=== PATIENT | male | born 2000 | race Caucasian/White ===

== ENCOUNTER 2019-12-02 12:41 | Emergency (ER) | payer MEDICAID, SELFPAY ==
[2019-12-02 12:45] VITALS: BP 144/75; PULSE 98; RESP 16; TEMP 37; O2SAT 100
--- NOTE | 2019-12-02 13:03 | W.ED.GENAD ---
Discharge Plan Disposition Patient Disposition: HOME Condition: Improving Discharge Details Chief Complaint: DentalOral Clinical Impression: Odontalgia, Broken tooth Primary Care Provider: None,None ED Provider: Ventura Elias Home Meds and New Rx's Prescriptions: New penicillin V potassium 500 mg tablet 500 mg PO QID 10 Days Qty: 40 RF: 0 Discharge Instructions Instructions: Acute Dental Trauma (ED), Toothache (ED) Additional Instructions: May use dental wax to provide additional coverage and protection from air and temperature. Soft diet. Take antibiotics as prescribed. Please see enclosed list of available dentists. Medical Decision Making 19-year-old male with broken upper first molar on the left side presents with persistent pain over weeks time and report of cancellation of planned extraction. He does have tenderness to percussion and palpation but no significant abscess formation. He likely is developing recurrent apical infection. Will place on antibiotics, he was given dental wax, he was offered a dental block which he declined. Patient has had pain that is refractory to [id number] medications. I will prescribe him a small number of oral analgesia for which he was consented. He understands homecare and return precautions. HPI General Mode of arrival: ambulatory. Date/Time Provider Initiated Documentation: 12/02/19 12:42. Limitations to Documentation: no limitations. Information obtained by: patient. History of Present Illness 19 year old M presents to the emergency department with the chief complaint of Left upper first molar pain, described as moderate, Quality is described as dull, and is localized to the mouth and left. Patient reports no radiation. Patient started experiencing this week(s) and it has been constant. No relieving factors improve symptom(s), No exacerbating factors reported . Patient did receive the following treatments prior to arrival, NSAID Related Data Home Medications Medication Instructions Recorded Confirmed penicillin V potassium 500 mg PO QID 10 Days #40 tab 12/02/19 Previous Rx's Medication Instructions Recorded penicillin V potassium 500 mg PO QID 10 Days #40 tab 12/02/19 Allergies Allergy/AdvReac Type Severity Reaction Status Date / Time No Known Allergies Allergy Unverified 12/02/19 12:50 General Stated Complaint: DentalOral WANDA: 4 Review of Systems Narrative: No change to voice, no difficulty swallowing, continues to smoke and has a chronic cough. 5 systems reviewed and otherwise negative COUNTS INCLUDE 234 BEDS AT THE [facility] Medical History ADHD (attention deficit hyperactivity disorder) Mood disorder Family History Mother Rheumatoid arthritis Diabetes Essential hypertension Degenerative joint disease Stroke COPD (chronic obstructive pulmonary disease) Asthma Father Substance abuse Mental disorder Social History Smoking/Tobacco Use Status: Current every day Tobacco Type: cigarettes Alcohol Intake: never Drug use: Occasionally Substance use type: marijuana Do you feel safe at home: Yes Do you feel safe in your relationship?: Yes Exam Narrative Exam Narrative: GEN: awake, alert, oriented 3. Pleasant, well groomed, interactive. HEAD: Normocephalic, atraumatic ENT: Mucous membranes moist, oropharynx with broken posterior cusps of the first molar on the left maxilla, tender to touch, no significant fluctuance and no buccal or lingual aspect swelling EYES: PERRL, EOMI NECK: Full ROM, no SUZANNE, no menigismus EXT: Full ROM, no edema, no rash Neuro: Grossly normal neurologic exam, conversant, interactive. Psych: Speech fluent, thoughts congruent, affect normal Course Vital Signs Vital signs: Vital Signs Temperature 37 C 12/02/19 12:45 Pulse 98 H 12/02/19 12:45 Respiratory Rate 16 12/02/19 12:45 Blood Pressure 144/75 H 12/02/19 12:45 Pulse Oximetry 100 12/02/19 12:45 Temperature 37 C 12/02/19 12:45 Temperature Source Skin 12/02/19 12:45 Pulse 98 H 12/02/19 12:45 Respiratory Rate 16 12/02/19 12:45 Respiratory Effort 12/02/19 12:51 Blood Pressure 144/75 H 12/02/19 12:45 Blood Pressure Position Sitting 12/02/19 12:45 Pulse Oximetry 100 12/02/19 12:45 Oxygen Delivery Method Room Air 12/02/19 12:45 Oxygen Flow Rate 0 12/02/19 12:45 Pain Level 10 12/02/19 12:45
== END 2019-12-02 13:29 | disposition home or self-care (01) ==
LOC: ER 13:24
PROVIDERS: Emergency Provider Emergency Medicine; PCP Nurse Practitioner
DX: R68.84 Jaw pain (principal); S02.5XXA Fracture of tooth (traumatic), initial encounter for closed fracture; X58.XXXA Exposure to other specified factors, initial encounter
CPT/HCPCS: 99283

== ENCOUNTER 2020-02-01 09:29 | Emergency (ER) | payer MEDICAID, SELFPAY ==
--- NOTE | 2020-02-01 09:30 | ED.GENADUL_ITS ---
Discharge Plan Disposition Patient Disposition: HOME Condition: Stable Discharge Details Chief Complaint: GenMedical Clinical Impression: Abrasion of forearm, right, Patient requested test Primary Care Provider: None,None ED Provider: Lisa Guzman Home Meds and New Rx's Prescriptions: Continued tramadol 50 mg tablet 50 mg PO TID PRN (Reason: pain) Qty: 7 RF: 0 Discharge Instructions Instructions: Abrasion (ED) Additional Instructions: Drink plenty of fluids and get plenty of rest. Keep wound clean and dry. Cover wound with bandage if risk of contamination. Otherwise you can keep the wound open to air if resting at home to allow edges to dry and heal. Follow-up with your primary care doctor in 1 week. Return to the emergency department with any worsening or new concerning symptoms. Call the hospital to schedule an appointment for COVID testing at the hospital tent. Stand Alone Forms: NEGATIVE COVID-19 SCREENING Discharge Data Discharge Physician: Lisa Guzman Medical Decision Making 19-year-old male with a history of ADHD and anxiety presents for evaluation with 2 caretakers who currently have respiratory symptoms and are being tested for COVID. Patient denies any symptoms. Patient states he would rather not be tested today if possible. BP hypertensive, otherwise vitals within normal limits. Lungs clear. Will refer patient to the tent for outpatient testing. He also complained of a form abrasion, carburetor a few days ago. No signs of acute cellulitis. Forearm was irrigated and covered with bacitracin and dressing. Advised to follow up with the primary care doctor for re-evaluation. Usual and customary return precautions given prior to discharge. After discharge, patient returned with rehab therapy manager requesting COVID testing. Swab was obtained and sent. Advised he will be notified of results. Medical Records Medical records reviewed: Yes I reviewed the patient's medical records. HPI General Mode of arrival: ambulatory . Date/Time Provider Initiated Documentation: 02/01/20 09:29 . Limitations to Documentation: no limitations . Information obtained by: patient . HPI Narrative: Patient is a 19-year-old male who presents for evaluation because his friend is presenting for COVID testing. Patient denies any symptoms. He has a history of ADHD and anxiety and is very nervous about being in the hospital. Patient states his friend has respiratory symptoms and he came with him because he has anxiety and is very nervous about possibly catching coronavirus. Patient denies any fever, cough, shortness of breath, chest pain, loss of sense of smell or taste. Patient also states he burned his right forearm on a carburetor at work a few days ago and now has an abrasion. He is requesting that the abrasion be washed and covered with a Band- Aid. Tetanus up-to-date. Related Data Home Medications Medication Instructions Recorded Confirmed tramadol 50 mg PO TID PRN #7 tab 12/02/19 02/01/20 Previous Rx's Medication Instructions Recorded tramadol 50 mg PO TID PRN #7 tab 12/02/19 Allergies Allergy/AdvReac Type Severity Reaction Status Date / Time No Known Allergies Allergy Unverified 02/01/20 09:37 General WANDA: 4 Review of Systems All systems reviewed & are unremarkable except as noted in HPI and below Constitutional Constitutional: Reports as per HPI, Denies chills and Denies fever(s) Eyes Eyes: Denies blurry vision ENT Ears, Nose, Mouth, and Throat: Denies dizziness, Denies sore throat and Denies throat swelling Cardiovascular Cardiovascular: Denies chest pain and Denies dyspnea Respiratory Respiratory: Denies cough and Denies dyspnea Gastrointestinal Gastrointestinal: Denies abdominal pain, Denies diarrhea and Denies vomiting Genitourinary Genitourinary: Denies hematuria and Denies dysuria Musculoskeletal Musculoskeletal: Denies back pain and Denies numbness Integumentary/Breasts Skin/Breast: Reports lesions and Denies rash Neurologic Neurologic: Denies dizziness, Denies localized weakness and Denies numbness Allergic/Immunologic Allergic/Immunologic: Denies throat swelling PFSH Family History Mother Rheumatoid arthritis Diabetes Essential hypertension Degenerative joint disease Stroke COPD (chronic obstructive pulmonary disease) Asthma Father Substance abuse Mental disorder Social History Smoking/Tobacco Use Status: Current every day Tobacco Type: cigarettes Alcohol Intake: never Drug use: Occasionally Substance use type: marijuana Do you feel safe at home: Yes Do you feel safe in your relationship?: Yes Exam Const General: cooperative, healthy appearing, no acute distress and anxious Orientation: alert, awake and oriented x3 HENMT Head: normal to inspection Face and sinus: normal facial exam Eyes General: appearance normal, both eyes and all related structures EOM: EOM intact bilaterally Neck Neck: normal visual inspection and No submandibular swelling Lymphatic: no lymphadenopathy noted Chest Chest: normal inspection of the chest and no tenderness Resp Effort & Inspection: normal respiratory effort and able to speak in complete sentences Auscultation: clear to auscultation bilaterally Cardio Rate: regular rate Rhythm: regular rhythm GI Inspection: normal to inspection Palpation: soft, not firm, not rigid and nontender Auscultation: normal bowel sounds Neuro General: patient alert, patient awake and patient oriented x3 Cognition: normal cognition Speech: speech normal Motor: muscle tone normal throughout Sensory Exam: no sensory deficits noted Extrem General: normal to inspection, full ROM, capillary refill normal, no calf tenderness bilaterally and no edema Elbow/forearm/wrist images: 1. 2 superficial abrasions noted on right medial forearm. Minimal erythema noted around more linear abrasion. Granulation tissue noted and appears to be healing well otherwise. No induration, fluctuance, drainage or bleeding. Psych Appearance: grossly normal Mental Status: mental status grossly normal Speech and Movement: speech and movement normal Affect: normal affect
[2020-02-01 09:33] VITALS: BP 153/110; PULSE 98; RESP 18; TEMP 36.7; O2SAT 98
[2020-02-01 09:37] VITALS: RESP 18
--- NOTE | 2020-02-01 11:06 | NUR.NOTE ---
Nursing Note: Pt returned back to front office secretary after discharge requesting to be tested for COVID now rather than the tent I'm here, my family got tested so why can't you just do me. Verbal order received- pt swabbed and specimen sent to lab for results.
[2020-02-05 18:11] LABS: SARS-CoV-2 RNA Undetected (Undetected); SARS-CoV-2 Specimen Source Nasopharynx
== END 2020-02-01 11:06 | disposition home or self-care (01) ==
PROVIDERS: Emergency Provider Physician Assistant; PCP Nurse Practitioner
DX: S50.811A Abrasion of right forearm, initial encounter (principal); X17.XXXA Contact with hot engines, machinery and tools, initial encounter; Z20.828 Contact with and (suspected) exposure to other viral communicable diseases; Z11.59 Encounter for screening for other viral diseases
CPT/HCPCS: 99281; U0003

== ENCOUNTER 2020-02-01 10:53 | Emergency (ER) | payer MEDICAID, SELFPAY | END 2020-02-01 11:04 | LOC: ER 10:56 | PROVIDERS: PCP Nurse Practitioner | DX: Z53.21 Procedure and treatment not carried out due to patient leaving prior to being seen by health care provider (principal) ==

== ENCOUNTER 2020-02-16 23:14 | Emergency (ER) | payer MEDICAID, SELFPAY ==
--- NOTE | 2020-02-16 23:00 | RT.EKG_ITS ---
APPROVED REPORT Exam: Resting ECG Patient Location: E HR:77 bpm ECG Measurements Heart Rate [address] 176 P 80 QRSd 110 QRS 83 QT 416 T 45 QTc 470 <Conclusion> Sinus rhythm...normal P axis, V-rate 60- 99 Probable left atrial enlargement...P >50mS, <-0.10mV V1
[2020-02-16 23:14] VITALS: BP 142/98; PULSE 92; RESP 16; TEMP 36.2; O2SAT 98
--- NOTE | 2020-02-16 23:15 | DI.CT_ITS ---
EXAM: CT HEAD CERVICAL SPINE WO CLINICAL HISTORY: altered mental status. TECHNIQUE: Imaging Protocol: Axial computed tomography images with coronal and sagittal reformatted images were created and reviewed COMPARISON: CT HEAD FACIALS WO from 10/16/2016 FINDINGS: Head CT Ventricles and Extra axial spaces: Normal in size and morphology for the patient's age. Hemorrhage: None. Cerebral parenchyma: Normal. Midline shift: None. Brainstem/Cerebellum: Normal. Calvarium: Normal. Visualized Paranasal sinuses/Mastoids: Clear. Cervical Spine CT BONES: Vertebral body heights are maintained. Intervertebral disc spaces are normal. Alignment is nor mal. There is no evidence of acute fracture. SOFT TISSUES: No paraspinal hematoma. The airway appears intact. . IMPRESSION: Negative CT of the head. Negative CT of the cervical spine. RADIATION DOSE DELIVERED: Total DLP DATA REPOSITORY: All CT scans at this facility are submitted to the National Radiology Data Registry (NRDR) Dose Index Registry (DIR) with the [employer] (ACR). RADIATION OPTIMIZATION: All CT scans at this facility use at least one of these dose optimization te chniques: automated exposure control; mA and/or kV adjustment per patient size (includes targeted exa ms where dose is matched to clinical indication); or iterative reconstruction.
--- NOTE | 2020-02-16 23:21 | ED.GENADUL_ITS ---
Discharge Plan Disposition Patient Disposition: OTHER Condition: Stable Discharge Details Chief Complaint: AMS/LOC Clinical Impression: Drug use, Altered mental status Primary Care Provider: Nirmala Baker ED Provider: Enrrique Nolan Home Meds and New Rx's Prescriptions: No Action No Known Home Meds RF: 0 Medical Decision Making 19 yo male with hx of adhd and aspergers comes in with ems after he was acting aggressive and not following commands. Per [place] [facility] they were called by a residence because the patient broke a ceramic rooster they owned. PD went to the residence and the patient was calm and cooperative and PD reportedly know him from prior incidents. He agreed to go to the station for a report. PD did note on breathalyzer an etoh level of 170 and he admitted to smoking marijuana earlier as well. While en route to the station he became aggressive and started smashing his head against the window. Given the change in his mental status ems was called and they were unable to safely get him to the stretcher due to his aggression so they administered 300mg IM ketamine. On arrival to the ED he is HD stable, not withdrawing to painful stimuli with equal pupils, no signs of trauma. HAs deep spontaneous breaths. Suspect current obtunded state is from ketamine given 10 minutes prior. I suspect this was as a result of drug use with underlying psychiatric condition but will obtain CT head/c spine to eval for ich, c spine injury, evaluate for conigestants and electrolyte abnormalities and monitor. Asfi Saucedo who is the heavy equipment plumbing supervisor for the patient's guardian who is out of town so she is the environmental monitoring specialist states the patient is normally caox4 and coverses well and can answer all questions appropriately. Patient now withdraws to painful stimuli and still not talking, ct negative and labs show mild increase in anion gap and cpk and low K, positive for thc and amephetamines unclear if he is on amphetamines for medications. Etoh over 200. WIll continue to monitor. patient lives in a home and the heavy equipment plumbing supervisor there named maddy states he is not on any medications currently repeat anion gap and K normal and cpk not significantly changed. HE is awake, caox4 though does have some slurred speech likely from the alcohol, no agitation here, will d/c in PD custody.Denies si/hi and had ICP done in already earlier so pd will consult mental health when he is sober Differential Diagnosis Differential Diagnosis: drug reaction, tbi, electrolyte abnormality, psychiatric disorder Medical Records Medical records reviewed: Yes I reviewed the patient's medical records. Imaging Data Radiologic Study: Attestation: I personally reviewed and interpreted this imaging study as follows: Imaging: CT Scan Radiologist's impression: no acute findings Lab Data Lab results reviewed: Yes I reviewed the patient's lab results. ECG Data Attestation: I personally reviewed and interpreted this ECG (s) as follows: Prior ECG tracings: not available for review Interpretation: sinus rhythm rate of 77 pr 176, no acute st twave ischemic findings, HPI General Mode of arrival: EMS . Date/Time Provider Initiated Documentation: 02/16/20 23:19 . Limitations to Documentation: altered mental status . Information obtained by: police and EMS . History of Present Illness 19 year old M presents to the emergency department with the chief complaint of altered mental status, Patient started experiencing this unknown Patient did receive the following treatments prior to arrival, other (ketamine with ems) Related Data Home Medications Medication Instructions Recorded Confirmed Unknown [No Known Home Meds] 02/17/20 02/17/20 Allergies Allergy/AdvReac Type Severity Reaction Status Date / Time No Known Allergies Allergy Unverified 02/01/20 09:37 General Stated Complaint: AMS/LOC WANDA: 2 Review of Systems Unobtainable due to mental status Respiratory Respiratory: Denies cough PFSH Family History Mother Rheumatoid arthritis Diabetes Essential hypertension Degenerative joint disease Stroke COPD (chronic obstructive pulmonary disease) Asthma Father Substance abuse Mental disorder Social History Smoking/Tobacco Use Status: Current every day Tobacco Type: cigarettes Alcohol Intake: never Drug use: Occasionally Substance use type: marijuana Do you feel safe at home: Yes Do you feel safe in your relationship?: Yes Exam Const Orientation: obtunded HENMT Head: normal to inspection Ears: external ears normal General nose exam: external nose normal Mouth: moist mucous membranes Eyes General: appearance normal, both eyes and all related structures Neck Neck: normal visual inspection Resp Effort & Inspection: normal respiratory effort Cardio Rate: regular rate Skin General skin exam: no rashes or lesions noted Neuro General: patient obtunded Extrem General: normal to inspection Restraint Face to Face Time of Face to Face Face to Face: Time of Face to Face: 23:30 Patient's Immediate Situation Requiring Restraints/Seclusion: Harm to Patient Patient Response to Restraints: Tolerating without Problems Patient's Medical & Behavioral Condition: agitated without chemical sedation Need for Continuation of Restraints Has Been Assessed: Restraints Continued
[2020-02-16 23:25] VITALS: RESP 16
[2020-02-16 23:39] LABS: HCO3 (Venous) 23 mmol/L (22-28); O2 Sat (Venous) 96 % (70-80); TCO2 (Venous) 20 mmol/L (22-29); pCO2 (Venous) 45 mm/Hg (34-47); pH (Venous) 7.32 (7.35-7.45); pO2 (Venous) 92 mm/Hg (28-44)
[2020-02-16 23:45] LABS: Bilirubin Negative (Negative); Blood Negative (Negative); Clarity Clear (Clear); Glucose Negative (Negative); Ketones Negative (Negative); Leukocyte Esterase Negative (Negative); Nitrite Negative (Negative); Urobilinogen 0.2 EU/dL (Up TO 0.2)
[2020-02-16 23:54] LABS: Ammonia 28 umol/L (11-32)
[2020-02-16 23:58] VITALS: RESP 15
[2020-02-16 23:58] LABS: Creatine Kinase 833 U/L (39-308)
[2020-02-17] VITALS (14 sets, daily range): BP systolic 117–143; BP diastolic 63–84; PULSE 60–95; RESP 12–20; O2SAT 97–99
[2020-02-17] LABS: *AMPHETAMINES SCREEN URINE POSITIVE (Negative); *BARBITURATES SCREEN URINE Negative (Negative); *BENZODIAZEPINES SCREEN URINE Negative (Negative); Cannabinoids THC POSITIVE (Negative); Cocaine Screen,Urine Negative (Negative); METHADONE URINE SCREEN Negative (Negative); OPIATES URINE SCREEN Negative (Negative)
--- NOTE | 2020-02-17 | NUR.NOTE ---
Nursing Note: Patient returned from CT. Went to CT with Johnny AVILES and [facility]. Patient became restless and combative on CT table, moved back to stretcher once CT was completed and placed in restraints which were on bed already. Patient returned, restraints secured, extremities all have strong pulses. Cardiac monitoring continuing. Lights turned off as patient still under effects of Ketamine.
[2020-02-17 00:01] LABS: Salicylate 4.6 mg/dL (2.8-20.0)
[2020-02-17 00:01] LABS: Tricyclic Antidepressants Negative (Negative)
[2020-02-17 00:03] LABS: Acetaminophen < 2 ug/mL (10-30)
[2020-02-17 00:06] LABS: ALT 26 U/L (16-63); AST 41 U/L (15-37); Albumin 4.7 g/dL (3.4-5.0); Alkaline Phosphatase 93 U/L (46-116); Anion Gap 15.6 mmol/L (3-11); BUN 8 mg/dL (7-18); Bilirubin, Direct 0.16 mg/dL (0.00-0.20); Bilirubin, Total 0.5 mg/dL (0.2-1.0); CO2 23.4 mmol/L (21.0-32.0); CREATININE 0.98 mg/dL (0.70-1.30); Calcium 8.5 mg/dL (8.5-10.1); Chloride 104 mmol/L (98-107); ETHANOL BLOOD 222.6 mg/dL (<3); Glucose 108 mg/dL (74-106); Magnesium 2.3 mg/dL (1.8-2.4); Sodium 143 mmol/L (136-145); TSH (W/Ref FT4) 4.15 uIU/mL (0.36-3.74); Total Protein 8.1 g/dL (6.4-8.2)
[2020-02-17] MEDS: Normal Saline 1,000 ML 1000 ML IV ×2 (00:07)
[2020-02-17 00:10] LABS: Potassium 2.8 mmol/L (3.5-5.1)
--- NOTE | 2020-02-17 00:11 | DI.VRAD_ITS ---
PROCEDURE INFORMATION: Exam: CT Head Without Contrast Exam date and time: 02/16/2020 11:45 PM Age: 19 years old Clinical indication: Other: Altered mental status TECHNIQUE: Imaging protocol: Computed tomography of the head without contrast. Radiation optimization: All CT scans at this facility use at least one of these dose optimization techniques: automated exposure control; mA and/or kV adjustment per patient size (includes targeted exams where dose is matched to clinical indication); or iterative reconstruction. COMPARISON: No relevant prior studies available. FINDINGS: Brain: No hemorrhage. Colby-white differentiation is maintained. No mass effect or midline shift. Ventricles: No ventriculomegaly. Bones/joints: No acute fracture. Sinuses: Visualized sinuses are unremarkable. No fluid levels. Mastoid air cells: Visualized mastoid air cells are well aerated. Soft tissues: Within normal limits. IMPRESSION: No acute intracranial findings. PROCEDURE INFORMATION: Exam: CT Cervical Spine Without Contrast Exam date and time: 02/16/2020 11:45 PM Age: 19 years old Clinical indication: Other: Altered mental status TECHNIQUE: Imaging protocol: Computed tomography images of the cervical spine without contrast. COMPARISON: No relevant prior studies available. FINDINGS: Vertebrae: No acute fracture. Normal alignment. Discs/Spinal canal/Neural foramina: No significant disc protrusion. No severe spinal canal stenosis. No significant neural foraminal narrowing. Soft tissues: Unremarkable. Lungs: Lung apices are normal. IMPRESSION: No acute fracture or malalignment. Dictated and Authenticated by: Divya Bustamante MD. Ordering:KANDY Osuna MD
[2020-02-17 00:13] LABS: INR 1.1 (0.9-1.1); PTT Activated 24.5 sec (21.0-31.4)
[2020-02-17 00:27] LABS: FREE T4 1.33 ng/dL (0.76-1.46)
[2020-02-17 01:35] LABS: Anion Gap 9.9 mmol/L (3-11); BUN 7 mg/dL (7-18); CO2 26.1 mmol/L (21.0-32.0); CREATININE 0.92 mg/dL (0.70-1.30); Calcium 8.2 mg/dL (8.5-10.1); Chloride 110 mmol/L (98-107); Glucose 90 mg/dL (74-106); Potassium 4.1 mmol/L (3.5-5.1); Sodium 146 mmol/L (136-145)
[2020-02-17 01:37] LABS: Creatine Kinase 928 U/L (39-308)
== END 2020-02-17 02:00 | disposition other institution (70) ==
PROVIDERS: Emergency Provider Emergency Medicine; PCP Nurse Practitioner
DX: R41.82 Altered mental status, unspecified (principal); R45.1 Restlessness and agitation; Z78.1 Physical restraint status; F84.5 Asperger's syndrome; F10.120 Alcohol abuse with intoxication, uncomplicated; Y90.7 Blood alcohol level of 200-239 mg/100 ml; F12.10 Cannabis abuse, uncomplicated
CPT/HCPCS: 36415; 51701; 80048; 80053; 80307; 82550; 82805; 93005; 96360; 96361; 99285; 70450; 72125; 80320; 80329; 81003; 82140; 82248; 83735; 84439; 84443; 85610; 85730; 93010

== ENCOUNTER 2020-05-03 09:25 | Emergency (ER) | payer MEDICAID, SELFPAY ==
[2020-05-03 09:33] VITALS: BP 143/55; PULSE 106; RESP 18; TEMP 36.5; O2SAT 99
--- NOTE | 2020-05-03 09:42 | ED.GENADUL_ITS ---
Discharge Plan Disposition Patient Disposition: HOME Condition: Stable Discharge Details Clinical Impression: Concern about STD in male without diagnosis Primary Care Provider: Nirmala Baker ED Provider: Mishel Okeefe Home Meds and New Rx's Prescriptions: No Action No Known Home Meds RF: 0 Discharge Instructions Instructions: Sexually Transmitted Diseases (ED), Safe Sex (ED) Additional Instructions: At this time we were unable to test you for gonorrhea or chlamydia. I do encourage you to still get tested if you are concerned. Follow up with primary care provider in 3-5 days. Return to ED sooner if any worsening or concerns. Increase oral fluids. Please take Tylenol or Ibuprofen with food every 4-6 hours as needed for pain and swelling. Referrals: Nirmala Baker [Primary Care Provider] - Discharge Data Discharge Date/Time-TO BE ENTERED AT DEPARTURE: 05/03/20 10:20 Medical Decision Making Discussed treatment with patient, he is willing to get the oral antibiotics and the IM injection. He is still unable to provide a urine sample at this time. Discussed pelvic rest and encouraged to continue to get tested at a later time. Patient discharged home, strict return instructions discussed, verbalized understanding. HPI General Mode of arrival: ambulatory . Date/Time Provider Initiated Documentation: 05/03/20 09:33 . Limitations to Documentation: no limitations . Information obtained by: patient . HPI Narrative: 20-year-old male presents to the ED chief complaint of request for STD testing. He reports that he may have possibly been exposed to chlamydia. Denies having any symptoms no penile discharge no lesions per patient report. He is extremely anxious upon initial exam and is declining a physical exam. Patient states that he is mentally unstable right now and is upset due to being kicked out of his house. He report s he is unable to supply a urine sample for testing. He denies any other associated symptoms no abdominal pain no diarrhea no fever. Related Data Home Medications Medication Instructions Recorded Confirmed Unknown [No Known Home Meds] 02/17/20 02/17/20 Allergies Allergy/AdvReac Type Severity Reaction Status Date / Time No Known Allergies Allergy Unverified 05/03/20 09:36 General Stated Complaint: Urinary WANDA: 4 Review of Systems Narrative: History is limited due to mental condition. All systems reviewed & are unremarkable except as noted in HPI and below and Unobtainable due to mental condition [facility] Medical History ADHD (attention deficit hyperactivity disorder) Mood disorder Family History Mother Rheumatoid arthritis Diabetes Essential hypertension Degenerative joint disease Stroke COPD (chronic obstructive pulmonary disease) Asthma Father Substance abuse Mental disorder Social History Smoking/Tobacco Use Status: Current every day Tobacco Type: cigarettes Details: pt states I'd rather not answer to ETOH and drug questions Do you feel safe at home: Yes Do you feel safe in your relationship?: Yes Exam Narrative Exam Narrative: Patient is declining physical exam at this time. Course Vital Signs Vital signs: Vital Signs Temperature 36.5 C 05/03/20 09:33 Pulse 106 H 05/03/20 09:33 Respiratory Rate 18 05/03/20 09:33 Blood Pressure 143/55 H 05/03/20 09:33 Pulse Oximetry 99 05/03/20 09:33 Temperature 36.5 C 05/03/20 09:33 Temperature Source Skin 05/03/20 09:33 Pulse 106 H 05/03/20 09:33 Respiratory Rate 18 05/03/20 09:33 Respiratory Effort 05/03/20 09:35 Blood Pressure 143/55 H 05/03/20 09:33 Blood Pressure Position Sitting 05/03/20 09:33 Pulse Oximetry 99 05/03/20 09:33 Oxygen Delivery Method Room Air 05/03/20 09:33 Oxygen Flow Rate 0 05/03/20 09:33 Pain Level 0 05/03/20 09:33
[2020-05-03] MEDS: Azithromycin 250 MG TAB 1000 MG PO (09:50)
[2020-05-03] MEDS: cefTRIAXone 250 MG VIAL IM (10:07)
== END 2020-05-03 10:20 | disposition home or self-care (01) ==
PROVIDERS: Emergency Provider Registered Nurse Emergency; PCP Nurse Practitioner
DX: F43.0 Acute stress reaction (principal); Z11.3 Encounter for screening for infections with a predominantly sexual mode of transmission
CPT/HCPCS: 96372; 99284; 99283; J0696

== ENCOUNTER 2020-11-01 22:17 | Emergency (ER) | payer MEDICAID, SELFPAY ==
[2020-11-01] VITALS (9 sets, daily range): BP systolic 130–166; BP diastolic 16–98; PULSE 70–130; RESP 14–16; TEMP 36.7; O2SAT 94–97
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
[2020-11-01 22:38] LABS: Abs Immature Grans 0.05 10^3/uL (0.0-0.06); HCT 42.6 % (40.0-50.0); HGB 14.4 g/dL (13.5-17.5); MCH 32.7 pg (27.0-33.0); MCHC 33.8 % (32.0-36.0); MCV 96.8 fL (80-95); MPV 10.3 fL (8.0-11.0); Nucleated RBC 0 %; Platelet Count 284 10^3/uL (130-400); RDW 12.7 % (11.8-14.1); RDW-SD 45.4 fL; WBC 9.98 10^3/uL (4.4-10.8)
[2020-11-01] MEDS: Omnipaque 350 MG/ML 100 ML BTL IJ (22:40)
[2020-11-01] MEDS: Ketamine 500 MG/10 ML VIAL 100 MG IVP (22:43)
[2020-11-01 22:50] LABS: Prothrombin Time 10.4 sec (9.3-11.0)
[2020-11-01 22:53] LABS: ALT 32 U/L (16-63); AST 33 U/L (15-37); Albumin 4.2 g/dL (3.4-5.0); Alkaline Phosphatase 100 U/L (46-116); Anion Gap 13.7 mmol/L (3-11); BUN 11 mg/dL (7-18); Bilirubin, Total 0.4 mg/dL (0.2-1.0); CO2 25.3 mmol/L (21.0-32.0); CREATININE 1.1 mg/dL (0.70-1.30); Calcium 9.2 mg/dL (8.5-10.1); Chloride 107 mmol/L (98-107); ETHANOL BLOOD 149.4 mg/dL (<3); Glucose 157 mg/dL (74-106); Potassium 3.1 mmol/L (3.5-5.1); Sodium 146 mmol/L (136-145); Total Protein 7.7 g/dL (6.4-8.2)
[2020-11-01 22:54] LABS: Troponin I < 0.05 ng/mL (<0.06)
[2020-11-01 22:58] LABS: Absolute Neutrophil Count 4.39 10^3/uL (1.2-6.7)
[2020-11-01 22:59] LABS: Absolute Lymphocyte Count 4.09 10^3/uL (1.2-3.4)
[2020-11-01 23:00] LABS: Diff Comment Manual Differential; Metamyelocytes % 1; RBC Morphology Normal
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
--- NOTE | 2020-11-01 23:15 | RT.EKG_ITS ---
APPROVED REPORT Exam: Resting ECG Patient Location: E HR:92 bpm ECG Measurements Heart Rate 92 AXIS CA 201 P 77 QRSd 104 QRS 87 QT 355 T 65 QTc 440 Conclusion Sinus rhythm...normal P axis, V-rate 60- 99 Borderline prolonged CA interval...CA >197, V-rate 91-120 Probable left atrial enlargement...P >50mS, <-0.10mV V1 ST elev, probable normal early repol pattern...ST elevation, age<55
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
[2020-11-01 23:29] LABS: Source Nasal/Nares
[2020-11-01 23:43] LABS: *AMPHETAMINES SCREEN URINE Negative (Negative); *BARBITURATES SCREEN URINE Negative (Negative); *BENZODIAZEPINES SCREEN URINE Negative (Negative); Cannabinoids THC Positive (Negative); Cocaine Screen,Urine Negative (Negative); METHADONE URINE SCREEN Negative (Negative); OPIATES URINE SCREEN Negative (Negative); Tricyclic Antidepressants Negative (Negative)
[2020-11-02] VITALS (25 sets, daily range): BP systolic 127–169; BP diastolic 65–145; PULSE 73–115; RESP 14–33; O2SAT 93–98
--- NOTE | 2020-11-02 00:07 | NUR.NOTE ---
Nursing Note: Remains in 4 point restraints, moving all extremities, squirming around on stretcher.. C-Collar off by Dr. Nolan.
[2020-11-02 00:09] LABS: COVID-19 PCR Negative (Negative)
[2020-11-02] MEDS: LORazepam 2 MG/ML VIAL 1 MG IVP ×2 (00:50→01:25)
--- NOTE | 2020-11-02 01:11 | NUR.NOTE ---
Nursing Note: Per Dr Nolan, ok to not give IVP potassium at this time.
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
== END 2020-11-02 05:50 | disposition home or self-care (01) ==
PROVIDERS: Student in an Organized Health Care Education/Training Program; Emergency Provider Emergency Medicine; PCP Nurse Practitioner
DX: E87.6 Hypokalemia (principal); F10.120 Alcohol abuse with intoxication, uncomplicated; Y90.6 Blood alcohol level of 120-199 mg/100 ml; R45.6 Violent behavior; R45.1 Restlessness and agitation; T14.91XA Suicide attempt, initial encounter; V47.5XXA Car driver injured in collision with fixed or stationary object in traffic accident, initial encounter; Z78.1 Physical restraint status; Z03.818 Encounter for observation for suspected exposure to other biological agents ruled out
CPT/HCPCS: 36415; 51701; 74177; 80053; 80307; 86850; 86900; 86901; 87635; 93005; 96374; 96375; 96376; 99291; 70450; 71260; 72125; 80320; 83735; 84484; 85025; 85610; 93010; J2060; J3490

== ENCOUNTER 2020-11-02 13:25 | Emergency (ER) | payer MEDICAID, SELFPAY ==
[2020-11-02] VITALS (19 sets, daily range): BP systolic 128–146; BP diastolic 69–83; PULSE 66–112; RESP 8–25; TEMP 36.5; O2SAT 97–99
--- NOTE | 2020-11-02 13:30 | RT.EKG_ITS ---
APPROVED REPORT Exam: Resting ECG Patient Location: E HR:95 bpm ECG Measurements Heart Rate 95 AXIS MS 161 P 92 QRSd 101 QRS 77 QT 339 T 36 QTc 426 Conclusion Sinus rhythm...normal P axis, V-rate 60- 99
[2020-11-02 14:00] LABS: Abs Immature Grans 0.05 10^3/uL (0.0-0.06); Absolute Basophil Count 0.05 10^3/uL (0.0-0.2); Absolute Eosinophil Count 0.01 10^3/uL (0.0-0.7); Absolute Lymphocyte Count 3.29 10^3/uL (1.2-3.4); Absolute Monocyte Count 1.02 10^3/uL (0.1-0.8); Basophils % 0.4; Eosinophils % 0.1; HGB 15.2 g/dL (13.5-17.5); Immature Grans % 0.4; Lymphocytes % 28.8; MCHC 35.3 % (32.0-36.0); MCV 96.2 fL (80-95); MPV 10.3 fL (8.0-11.0); Monocytes % 8.9; Neutrophils % 61.4; Nucleated RBC 0 %; Platelet Count 299 10^3/uL (130-400); RBC 4.47 10^6/uL (4.36-5.78); RDW-SD 46.3 fL; WBC 11.42 10^3/uL (4.4-10.8)
[2020-11-02 14:01] LABS: Absolute Neutrophil Count 7.01 10^3/uL (1.2-6.7)
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
[2020-11-02 14:22] LABS: ALT 35 U/L (16-63); AST 43 U/L (15-37); Albumin 4.3 g/dL (3.4-5.0); Alkaline Phosphatase 101 U/L (46-116); Anion Gap 8.8 mmol/L (3-11); BUN 9 mg/dL (7-18); Bilirubin, Total 0.6 mg/dL (0.2-1.0); CO2 28.2 mmol/L (21.0-32.0); CREATININE 0.9 mg/dL (0.70-1.30); Chloride 105 mmol/L (98-107); Glucose 145 mg/dL (74-106); Potassium 3.8 mmol/L (3.5-5.1); Sodium 142 mmol/L (136-145); Total Protein 7.8 g/dL (6.4-8.2)
[2020-11-02 14:23] LABS: ETHANOL BLOOD < 3.0 mg/dL (<3)
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
== END 2020-11-02 15:46 | disposition home or self-care (01) ==
PROVIDERS: Emergency Provider Emergency Medicine; PCP Nurse Practitioner
DX: G40.89 Other seizures (principal); M79.10 Myalgia, unspecified site
CPT/HCPCS: 36415; 80053; 80307; 93005; 99285; 70450; 80320; 85025; 93010; 99284

== ENCOUNTER 2021-01-01 18:20 | Emergency (ER) | payer MEDICAID, SELFPAY ==
[2021-01-01] VITALS (24 sets, daily range): BP systolic 118–144; BP diastolic 64–79; PULSE 67–112; RESP 8–25; TEMP 36.9; O2SAT 93–100
--- NOTE | 2021-01-01 18:15 | DI.CT_ITS ---
Exam(s) CT HEAD WO EXAM: CT HEAD WO CLINICAL HISTORY: agitation, alcohol. TECHNIQUE: Imaging Protocol: Axial computed tomography images with coronal and sagittal reformatted images were created and reviewed COMPARISON: CT CT HEAD WO from 11/02/2020 FINDINGS: There are no skull fractures nor fluid in the visualized paranasal sinuses. There is no evidence of intracranial hemorrhage, mass effect, or shift of midline structures. There are no extra-axial fluid collections. The ventricles are not enlarged or shifted and there is no blo od within the ventricular system nor within the basal cisterns. There appears to be very subtle diffuse hypodensity in the white matter of both occipital lobes, poss ibly within normal limits. However recommend follow-up MRI. IMPRESSION: Very subtle hypodensity in the white matter both occipital lobes. Recommend follow-up MRI if clinically indicated. Findings discussed by phone with the ER physician. RADIATION DOSE DELIVERED: 811.25mGy.cm Total DLP DATA REPOSITORY: All CT scans at this facility are submitted to the National Radiology Data Registry (NRDR) Dose Index Registry (DIR) with the [employer] (ACR). RADIATION OPTIMIZATION: All CT scans at this facility use at least one of these dose optimization te chniques: automated exposure control; mA and/or kV adjustment per patient size (includes targeted exa ms where dose is matched to clinical indication); or iterative reconstruction.
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
--- NOTE | 2021-01-01 18:31 | NUR.NOTE ---
Nursing Note: Malachi Adamson [phone] caregiver
[2021-01-01 18:35] LABS: Abs Immature Grans 0.04 10^3/uL (0.0-0.06); Absolute Basophil Count 0.04 10^3/uL (0.0-0.2); Absolute Eosinophil Count 0.03 10^3/uL (0.0-0.7); Absolute Lymphocyte Count 3.39 10^3/uL (1.2-3.4); Absolute Monocyte Count 0.63 10^3/uL (0.1-0.8); Absolute Neutrophil Count 6.04 10^3/uL (1.2-6.7); Basophils % 0.4; Eosinophils % 0.3; HCT 41.7 % (40.0-50.0); HGB 14.2 g/dL (13.5-17.5); Immature Grans % 0.4; Lymphocytes % 33.3; MCH 33.3 pg (27.0-33.0); MCHC 34.1 % (32.0-36.0); MCV 97.9 fL (80-95); MPV 10.3 fL (8.0-11.0); Monocytes % 6.2; Neutrophils % 59.4; Nucleated RBC 0 %; Platelet Count 261 10^3/uL (130-400); RBC 4.26 10^6/uL (4.36-5.78); RDW 12.2 % (11.8-14.1); RDW-SD 43.8 fL; WBC 10.17 10^3/uL (4.4-10.8)
--- NOTE | 2021-01-01 18:48 | DI.VRAD_ITS ---
PROCEDURE INFORMATION: Exam: CT Head Without Contrast Exam date and time: 01/01/2021 6:27 PM Age: 20 years old Clinical indication: Altered mental status/memory loss TECHNIQUE: Imaging protocol: Computed tomography of the head without contrast. COMPARISON: CT HEAD WO 11/02/2020 3:22 PM FINDINGS: Brain: There is no evidence of acute hemorrhage within the brain parenchyma or the subarachnoid space. No abnormal attenuation is noted within the brain parenchyma. Cerebral ventricles: There is no significant ventricular effacement or midline shift. The ventricular system is normal in size and distribution. Paranasal sinuses: The sinuses are normal. Mastoid air cells: The mastoid sinuses are normal. Orbital cavity: The orbits are normal. Bones/joints: The skull is normal. Soft tissues: The extracranial soft tissues are normal. IMPRESSION: No acute abnormality. Dictated and Authenticated by: Denisse Hodge MD. Ordering:KAYLIE Whitehead MD
[2021-01-01 18:55] LABS: Bilirubin Negative (Negative); Blood Negative (Negative); Clarity Clear (Clear); Glucose Negative (Negative); Ketones Negative (Negative); Leukocyte Esterase Negative (Negative); Nitrite Negative (Negative); Specific Gravity 1.015 (1.005-1.025); Urobilinogen 0.2 EU/dL (Up TO 0.2)
[2021-01-01] MEDS: Normal Saline 1,000 ML 1000 ML IV (18:56)
[2021-01-01] MEDS: Ondansetron 4 MG/2 ML VIAL IVP (19:05)
[2021-01-01 19:06] LABS: ALT 28 U/L (16-63); AST 43 U/L (15-37); Albumin 4.3 g/dL (3.4-5.0); Alkaline Phosphatase 88 U/L (46-116); Anion Gap 13.8 mmol/L (3-11); BUN 10 mg/dL (7-18); Bilirubin, Total 0.5 mg/dL (0.2-1.0); CO2 24.2 mmol/L (21.0-32.0); CREATININE 1.2 mg/dL (0.70-1.30); Calcium 8.7 mg/dL (8.5-10.1); Chloride 106 mmol/L (98-107); Glucose 142 mg/dL (74-106); Potassium 3.3 mmol/L (3.5-5.1); Sodium 144 mmol/L (136-145); TSH (W/Ref FT4) 0.88 uIU/mL (0.36-3.74); Total Protein 7.7 g/dL (6.4-8.2)
[2021-01-01 19:07] LABS: ETHANOL BLOOD 305.4 mg/dL (<3)
[2021-01-01 19:12] LABS: *AMPHETAMINES SCREEN URINE Negative (Negative); *BARBITURATES SCREEN URINE Negative (Negative); *BENZODIAZEPINES SCREEN URINE Negative (Negative); Cannabinoids THC Positive (Negative); Cocaine Screen,Urine Negative (Negative); METHADONE URINE SCREEN Negative (Negative); OPIATES URINE SCREEN Negative (Negative)
[2021-01-01 19:12] LABS: Salicylate 3.6 mg/dL (<2.8)
[2021-01-01 19:17] LABS: Acetaminophen < 2 ug/mL (10-30)
[2021-01-01 19:17] LABS: Tricyclic Antidepressants Negative (Negative)
[2021-01-01] MEDS: LORazepam 2 MG/ML VIAL 1 MG IVP (21:06)
== END 2021-01-01 22:25 | disposition home or self-care (01) ==
PROVIDERS: Emergency Medicine; Emergency Provider Emergency Medicine; PCP Nurse Practitioner
DX: F10.129 Alcohol abuse with intoxication, unspecified (principal); E87.6 Hypokalemia
CPT/HCPCS: 36415; 80053; 80307; 96361; 96374; 96375; 99284; 70450; 80320; 80329; 81003; 84443; 85025; 99283; J2060; J2405

== ENCOUNTER 2021-01-22 15:13 | Emergency (ER) | payer MEDICAID, SELFPAY ==
[2021-01-22 15:21] VITALS: BP 131/76; PULSE 107; RESP 16; TEMP 37; O2SAT 97
--- NOTE | 2021-01-22 15:37 | ED.GENADUL_ITS ---
Discharge Plan Disposition Patient Disposition: HOME Condition: Stable Discharge Details Clinical Impression: Laceration of skin of scalp, Alcohol intoxication Primary Care Provider: Nirmala Baker ED Provider: Mishel Okeefe Home Meds and New Rx's Prescriptions: No Action No Known Home Meds RF: 0 Discharge Instructions Instructions: Head Injury (ED), Staple Care (ED) Additional Instructions: You may wash laceration under running soap and water. Return for any vomiting, confusion signs of head injury. 4 jacqueline were placed to the laceration on your left scalp. Have jacqueline removed in 5 to 7 days. Return or be seen sooner for any signs of infection, red streaks, drainage increased pain not relieved by Tylenol or ibuprofen. With a head injury try not to drink anymore alcohol as this may mask symptoms of a worsening head injury. We will call you if there is any abnormality on your CT. Please take Tylenol or Ibuprofen with food every 4-6 hours as needed for pain and swelling. Referrals: Nirmala Baker [Primary Care Provider] - Discharge Data Discharge Date/Time-TO BE ENTERED AT DEPARTURE: 01/22/21 17:20 HPI General Date/Time Provider Initiated Documentation: 01/22/21 15:37 . Related Data Home Medications Medication Instructions Recorded Confirmed Unknown [No Known Home Meds] 02/17/20 01/22/21 Allergies Allergy/AdvReac Type Severity Reaction Status Date / Time No Known Allergies Allergy Unverified 01/22/21 15:25 General Stated Complaint: HeadInjury WANDA: 3 PFSH Medical History ADHD (attention deficit hyperactivity disorder) Mood disorder Family History Mother Rheumatoid arthritis Diabetes Essential hypertension Degenerative joint disease Stroke COPD (chronic obstructive pulmonary disease) Asthma Father Substance abuse Mental disorder Social History Smoking/Tobacco Use Status: Current every day Tobacco Type: cigarettes Smoking risk assessment performed?: Yes Alcohol Intake: current Alcohol Intake frequency: a few times a month Drug use: Daily Substance use type: former substance user and marijuana Do you feel safe at home: Yes Do you feel safe in your relationship?: Yes Course Vital Signs Vital signs: Vital Signs Temperature 37.0 C 01/22/21 15:21 Pulse 107 H 01/22/21 15:21 Respiratory Rate 16 01/22/21 15:21 Blood Pressure 131/76 01/22/21 15:21 Pulse Oximetry 97 01/22/21 15:21 Temperature 37.0 C 01/22/21 15:21 Temperature Source Skin 01/22/21 15:21 Pulse 107 H 01/22/21 15:21 Respiratory Rate 16 01/22/21 15:21 Respiratory Effort Non-Labored 01/22/21 15:26 Respiratory Depth Normal 01/22/21 15:26 Respiratory Pattern Normal 01/22/21 15:26 Blood Pressure 131/76 01/22/21 15:21 Blood Pressure Position Sitting 01/22/21 15:21 Pulse Oximetry 97 01/22/21 15:21 Oxygen Delivery Method Room Air 01/22/21 15:21 Oxygen Flow Rate 0 01/22/21 15:21 Pain Level 11 01/22/21 15:21
[2021-01-22] MEDS: Acetaminophen 500 MG TAB (16:01)
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
== END 2021-01-22 17:20 | disposition home or self-care (01) ==
PROVIDERS: Emergency Provider Registered Nurse Emergency; PCP Nurse Practitioner
DX: S01.01XA Laceration without foreign body of scalp, initial encounter (principal); X58.XXXA Exposure to other specified factors, initial encounter; F10.129 Alcohol abuse with intoxication, unspecified
CPT/HCPCS: 12002; 99284; 70450; 72125; 99283

== ENCOUNTER 2021-03-02 00:03 | Emergency (ER) | payer MEDICAID, SELFPAY ==
[2021-03-02 00:08] VITALS: BP 144/79; PULSE 70; RESP 16; TEMP 36.7; O2SAT 98
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
[2021-03-02] MEDS: Bacitracin 30 GM TUBE (00:32)
[2021-03-02] MEDS: oxyCODONE 5 MG TAB PO (00:32)
== END 2021-03-02 00:52 | disposition home or self-care (01) ==
PROVIDERS: Emergency Provider Emergency Medicine; PCP Nurse Practitioner
DX: T23.202A Burn of second degree of left hand, unspecified site, initial encounter (principal); X03.8XXA Other exposure to controlled fire, not in building or structure, initial encounter
CPT/HCPCS: 99283

== ENCOUNTER 2021-04-22 18:09 | Emergency (ER) | payer MEDICAID, SELFPAY ==
[2021-04-22 18:17] VITALS: BP 148/94; PULSE 131; RESP 16; TEMP 35.7; O2SAT 98
--- NOTE | 2021-04-22 18:30 | DI.RAD_ITS ---
Exam(s) XR CHEST 2V PA LATERAL EXAM: XR CHEST 2V PA LATERAL CLINICAL HISTORY: left sided rib pain TECHNIQUE: 2D digital imaging was performed of the chest. Two images were obtained. PA and lateral views were obtained. COMPARISON: CR RIGHT RIBS PA CXR-3 VIEWS from 10/16/2016 CR RIGHT RIBS PA CXR-3 VIEWS from 10/16/2016 FINDINGS: MEDIASTINUM: Normal. HEART: Normal. PULMONARY VASCULATURE: Normal. LUNGS: Clear. PLEURAL SPACE: No pleural effusion or pneumothorax. BONE:Within normal limits for the patient's age. OTHER FINDINGS:Normal. IMPRESSION: No acute pulmonary findings. DATA REPOSITORY: RADIATION DOSE DELIVERED:
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
[2021-04-22] MEDS: Ibuprofen 600 MG TAB PO (18:39)
--- NOTE | 2021-04-22 19:02 | DI.VRAD_ITS ---
PROCEDURE INFORMATION: Exam: XR Chest Exam date and time: 04/22/2021 6:33 PM Age: 20 years old Clinical indication: Chest wall pain; Left-sided rib pain TECHNIQUE: Imaging protocol: XR of the chest. Views: 2 views. COMPARISON: CT CHEST/ABD/PEL W 11/01/2020 10:57 PM FINDINGS: Lungs: No alveolar infiltrate. Pleural spaces: No pleural fluid collection. No pneumothorax. Heart/Mediastinum: Normal heart size. Bones/joints: Unremarkable for patient age. IMPRESSION: No active pulmonary disease. Dictated and Authenticated by: Colin Gomes MD. Ordering:KANDY Osuna MD
--- NOTE | 2021-04-22 19:05 | NUR.NOTE ---
Flora from mental health arrives at bedside.Nursing Note:
[2021-04-22] MEDS: Acetaminophen 500 MG TAB 1000 MG PO (19:23)
[2021-04-22] MEDS: Gabapentin 300 MG CAP PO (19:24)
== END 2021-04-22 19:15 | disposition home or self-care (01) ==
PROVIDERS: Emergency Provider Emergency Medicine; PCP Nurse Practitioner
DX: S20.212A Contusion of left front wall of thorax, initial encounter (principal); W50.0XXA Accidental hit or strike by another person, initial encounter
CPT/HCPCS: 99283; 71046

== ENCOUNTER 2021-04-29 16:10 | Emergency (ER) | payer MEDICAID, SELFPAY ==
[2021-04-29 16:26] VITALS: BP 139/78; PULSE 95; RESP 16; TEMP 36.6; O2SAT 98
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
== END 2021-04-29 17:02 | disposition left against medical advice (07) ==
PROVIDERS: Emergency Provider Physician Assistant; PCP Nurse Practitioner
DX: M54.89 Other dorsalgia (principal); V49.9XXA Car occupant (driver) (passenger) injured in unspecified traffic accident, initial encounter; R45.1 Restlessness and agitation; Z53.29 Procedure and treatment not carried out because of patient's decision for other reasons
CPT/HCPCS: 80053; 83690; 86900; 86901; 99281; 80320; 83735; 85025

== ENCOUNTER 2021-04-29 18:45 | Emergency (ER) | payer MEDICAID, SELFPAY ==
[2021-04-29 19:07] VITALS: BP 147/81; PULSE 86; RESP 16; TEMP 36.7; O2SAT 100
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
== END 2021-04-29 20:50 | disposition home or self-care (01) ==
PROVIDERS: Emergency Provider Student in an Organized Health Care Education/Training Program; PCP Nurse Practitioner
DX: M54.6 Pain in thoracic spine (principal); M62.830 Muscle spasm of back; V49.9XXA Car occupant (driver) (passenger) injured in unspecified traffic accident, initial encounter
CPT/HCPCS: 71250; 99284; 70450; 72125; 74176; 99283

== ENCOUNTER 2021-06-15 16:48 | Emergency (ER) | payer MEDICAID, SELFPAY ==
--- NOTE | 2021-06-15 17:00 | DI.CT_ITS ---
Exam(s) CT HEAD WO EXAM: CT HEAD WO CLINICAL HISTORY: ams, etoh, HI. TECHNIQUE: Imaging Protocol: Axial computed tomography images with coronal and sagittal reformatted images were created and reviewed COMPARISON: CT CT HEAD CERVICAL SPINE WO from 04/29/2021 FINDINGS: Ventricles and Extra axial spaces: Normal in size and morphology for the patient's age. Hemorrhage: None. Cerebral parenchyma: Normal. Midline shift: None. Brainstem/Cerebellum: Normal. Calvarium: Normal. Visualized Paranasal sinuses/Mastoids: Clear. Soft Tissues: Mild posterior scalp swelling.. IMPRESSION: No acute intracranial process. RADIATION DOSE DELIVERED: 818.79mGy.cm Total DLP DATA REPOSITORY: All CT scans at this facility are submitted to the National Radiology Data Registry (NRDR) Dose Index Registry (DIR) with the [employer] (A[employer]). RADIATION OPTIMIZATION: All CT scans at this facility use at least one of these dose optimization te chniques: automated exposure control; mA and/or kV adjustment per patient size (includes targeted exa ms where dose is matched to clinical indication); or iterative reconstruction.
[2021-06-15] MEDS: Midazolam 2 MG/2 ML VIAL IM ×2 (17:03→17:12)
[2021-06-15] MEDS: Haloperidol 5 MG/ML VIAL IM (17:03)
[2021-06-15] MEDS: Ketamine 500 MG/10 ML VIAL 200 MG IM (17:24)
[2021-06-15 17:50] LABS: Source Nasal/Nares
[2021-06-15 17:57] LABS: Abs Immature Grans 0.03 10^3/uL (0.0-0.06); Absolute Basophil Count 0.02 10^3/uL (0.0-0.2); Absolute Eosinophil Count 0.04 10^3/uL (0.0-0.7); Absolute Lymphocyte Count 1.98 10^3/uL (1.2-3.4); Absolute Monocyte Count 0.53 10^3/uL (0.1-0.8); Absolute Neutrophil Count 4.47 10^3/uL (1.2-6.7); Basophils % 0.3; Eosinophils % 0.6; HCT 41.5 % (40.0-50.0); Immature Grans % 0.4; MCH 33.1 pg (27.0-33.0); MCHC 33.7 % (32.0-36.0); MCV 98.1 fL (80-95); MPV 10.7 fL (8.0-11.0); Monocytes % 7.5; Neutrophils % 63.2; Nucleated RBC 0 %; Platelet Count 223 10^3/uL (130-400); RBC 4.23 10^6/uL (4.36-5.78); RDW 12.6 % (11.8-14.1); RDW-SD 45.7 fL; WBC 7.07 10^3/uL (4.4-10.8)
[2021-06-15 17:58] LABS: Bilirubin Negative (Negative); Blood Negative (Negative); Clarity Clear (Clear); Glucose Negative (Negative); Ketones Negative (Negative); Leukocyte Esterase Negative (Negative); Nitrite Negative (Negative); Specific Gravity 1.015 (1.005-1.025); Urobilinogen 0.2 EU/dL (Up TO 0.2)
[2021-06-15 18:09] VITALS: BP 126/58; PULSE 88; RESP 18; TEMP 36.8; O2SAT 95
[2021-06-15 18:10] LABS: *AMPHETAMINES SCREEN URINE Negative (Negative); *BARBITURATES SCREEN URINE Negative (Negative); *BENZODIAZEPINES SCREEN URINE Positive (Negative); Cannabinoids THC Positive (Negative); Cocaine Screen,Urine Negative (Negative); METHADONE URINE SCREEN Negative (Negative); OPIATES URINE SCREEN Negative (Negative)
[2021-06-15 18:13] LABS: Tricyclic Antidepressants Negative (Negative)
[2021-06-15 18:18] LABS: Bacteria Negative HPF (Negative); Crystals Negative HPF (Negative); Epithelial Cells Rare HPF (Negative); Other Cells Few Renal (Negative); RBC 0-2 HPF (0-2); WBC 0-2 HPF (0-5)
--- NOTE | 2021-06-15 18:18 | DI.VRAD_ITS ---
PROCEDURE INFORMATION: Exam: CT Head Without Contrast Exam date and time: 06/15/2021 5:16 PM Age: 21 years old Clinical indication: Other: AMS, ETOH, hi TECHNIQUE: Imaging protocol: Computed tomography of the head without contrast. Radiation optimization: All CT scans at this facility use at least one of these dose optimization techniques: automated exposure control; mA and/or kV adjustment per patient size (includes targeted exams where dose is matched to clinical indication); or iterative reconstruction. COMPARISON: CT HEAD CERVICAL SPINE WO 04/29/2021 7:48 PM FINDINGS: Brain: Cerebral sulci show bilateral symmetry with no supratentorial mass or mass effect detected. Brainstem and cerebellum are normal in appearance. There is no evidence of acute intracranial hemorrhage. Cerebral ventricles: Ventricular and cisternal spaces are normal in size and configuration and there is no midline shift or hydrocephalus seen. Paranasal sinuses: Minimal mucosal density at the anterior base of the left maxillary sinus with other paranasal sinuses clear throughout. Mastoid air cells: Normally pneumatized and clear bilaterally. Bones/joints: Bony calvarium and skull base are intact and no acute fractures are detected. Soft tissues: Posterior midline parieto-occipital scalp ecchymosis/soft tissue swelling noted with no subjacent fracture detected. IMPRESSION: 1. No evidence of acute intracranial hemorrhage or other acute intracranial process. 2. Posterior midline parieto-occipital scalp ecchymosis/soft tissue swelling noted with no subjacent fracture detected. Dictated and Authenticated by: Clark Shi MD. Ordering:MONY Bustamante MD
[2021-06-15 18:19] LABS: C & S Indicated? No; Casts Negative LPF (Negative); Mucus Trace (Negative)
[2021-06-15 18:21] LABS: Acetaminophen < 2 ug/mL (10-30); Salicylate 3.9 mg/dL (<2.8)
[2021-06-15 18:22] LABS: ALT 30 U/L (16-63); AST 42 U/L (15-37); Albumin 4.6 g/dL (3.4-5.0); Alkaline Phosphatase 91 U/L (46-116); BUN 12 mg/dL (7-18); Bilirubin, Total 0.4 mg/dL (0.2-1.0); CREATININE 0.9 mg/dL (0.70-1.30); Calcium 8.8 mg/dL (8.5-10.1); Chloride 104 mmol/L (98-107); ETHANOL BLOOD 254.8 mg/dL (<10); Glucose 97 mg/dL (74-106); Sodium 143 mmol/L (136-145); Total Protein 7.7 g/dL (6.4-8.2)
--- NOTE | 2021-06-15 18:45 | RT.EKG_ITS ---
APPROVED REPORT Exam: Resting ECG Reason for Exam: [facility] Patient Location: E HR:96 bpm ECG Measurements Heart Rate 96 AXIS IA 161 P 82 QRSd 100 QRS 86 QT 371 T 30 QTc 470 Conclusion Sinus rhythm...normal P axis, V-rate 60- 99 ST elev, probable normal early repol pattern...ST elevation, age<55. Sinus. No STEMI. I have reviewed and interpreted ECG and agree with software generated interpretation.
[2021-06-15 18:47] LABS: COVID-19 PCR Negative (Negative)
--- NOTE | 2021-06-15 19:31 | W.ED.GENAD ---
Discharge Plan Disposition Patient Disposition: HOME Condition: Stable Discharge Details Clinical Impression: Hypokalemia, Alcohol intoxication, Agitation, Dehydration Primary Care Provider: Nirmala Baker ED Provider: Dianna Lee Home Meds and New Rx's Prescriptions: New potassium chloride 20 mEq tablet,ER particles/crystals 20 meq PO DAILY Qty: 5 RF: 0 Discharge Instructions Instructions: Dehydration (ED), Hypokalemia (ED), Alcohol Intoxication (ED) Additional Instructions: Please follow-up with your primary care physician Take potassium as prescribed as your potassium level is low Stay away from alcohol as it seems to make you very sick and angry Follow-up with your counselor Return earlier should you have new or worsening complaints Increase your hydration Referrals: Nirmala Baker [Primary Care Provider] - Discharge Data Discharge Date/Time-TO BE ENTERED AT DEPARTURE: 06/15/21 21:59 Medical Decision Making Upon arrival, patient was very agitated, he was in police custody and throwing himself into the wall and door room, screaming entities and expressing homicidal and suicidal thoughts. Per patient and staff safety of patient with sitting and combative towards staff, he was placed in four-point restraints and administered 5 mg of Haldol and 2 mg of Versed IM We waited approximately 10 minutes, patient remained combative with numerous staff members holding patient despite being physically restrained For patient and staff safety, no additional 2 mg of IM Versed was administered, he was reassessed 10 minutes later and remained combative We therefore ordered 3 mg/kg dose of ketamine for patient and staff safety, patient tolerated this well and slept for approximately 90 minutes He was reassessed at this point in an attempt to remove restraints, however he still quite agitated so restraints were reordered at time of reassessment, patient had stable vital, he is responsive to voice tired in appearance with slurred speech CPSO in place His head CT does not show acute abnormality, his gap is 17, attempt made to administer IV fluid resuscitation, however if he is agitated Patient is monitored throughout the entirety of this assessment Mild hypokalemia 3.0, no acute EKG changes consistent, EKG without QTC prolongation Of note, patient has a guardian listed, I spoke with his caregiver Juan Diego Ly and he states that his guardianship was discontinued, he is his own person at this time reportedly , Patient was also made aware that he did spit, officer, we will obtain consent to order labs for exposure 2129, patient sleeping, will decrease to two-point restraints and reassess 2144, patient calm, cooperative, removed from all restraints, ambulatory with steady gait Patient will be discharged home in the care of his caregiver, Malachi Adamson is willing to accept the patient home He is reassessed from a mental health standpoint and denies any suicidal or homicidal ideation, he is alert, oriented, of decisional capacity at time of reassessment He states he has a nonfocal neurological exam on reassessment GCS 15, strength sensation intact distally, ambulatory with steady gait At this time I think he stable for discharge home He is given potassium supplementation for home HPI General Mode of arrival: ambulatory. Date/Time Provider Initiated Documentation: 06/15/21 16:48. Limitations to Documentation: altered mental status. Information obtained by: family and police. HPI Narrative: This 21-year-old male with history of Asperger's, alcohol intoxication, agitation who presents with report of agitation, agitation, and combative behavior. Patient reportedly met a friend and had a few drinks and is triggered by alcohol. This is reportedly happened before. Her caregiver, patient was cleared of his guardianship 2 weeks ago in his own person at this time. Please report that patient was extremely agitated and combative towards plan, he was hitting his head against object and threatening to harm police. Patient is unable to relay history at time of my assessment. Related Data Home Medications Medication Instructions Recorded Confirmed potassium chloride 20 meq PO DAILY #5 tab 06/15/21 Previous Rx's Medication Instructions Recorded potassium chloride 20 meq PO DAILY #5 tab 06/15/21 Allergies Allergy/AdvReac Type Severity Reaction Status Date / Time latex Allergy Intermediate Itching Unverified 04/29/21 19:12 General Stated Complaint: PsychEval WANDA: 2 Review of Systems All systems reviewed & are unremarkable except as noted in HPI and below PFSH Medical History ADHD (attention deficit hyperactivity disorder) Mood disorder Family History Mother Rheumatoid arthritis Diabetes Essential hypertension Degenerative joint disease Stroke COPD (chronic obstructive pulmonary disease) Asthma Father Substance abuse Mental disorder Social History (Reviewed 04/29/21 @ 20:50 by AMINATA Muniz Smoking/Tobacco Use Status: Current every day Tobacco Type: cigarettes and smokeless tobacco Smoking risk assessment performed?: Yes Alcohol Intake: current Alcohol Intake frequency: 0-2 drinks per day Drug use: Daily Substance use type: former substance user and marijuana Do you feel safe at home: Yes Do you feel safe in your relationship?: Yes Exam Const General: acute distress, combative, intoxicated appearing and not lethargic Nutritional Appearance: thin Orientation: alert Limitations: altered mental status [facility] Head images: 1. Hematoma and abrasion noted Eyes Pupils: PERRL Neck Other: no midline tenderness Resp Effort & Inspection: normal respiratory effort Auscultation: clear to auscultation bilaterally Cardio Rate: regular rate Rhythm: regular rhythm GI Inspection: normal to inspection Other: Nontender abdominal exam Skin General skin exam: no rashes or lesions noted Neuro General: patient alert Cranial Nerves: PERRL Other: GCS 15 Extrem General: normal to inspection Psych Appearance: well kempt Speech and Movement: agitated Mood: angry Affect: hostile Attitude: belligerent Course Vital Signs Vital signs: Vital Signs Temperature 36.8 C 06/15/21 18:09 Pulse 88 06/15/21 18:09 Respiratory Rate 18 06/15/21 18:09 Blood Pressure 126/58 L 06/15/21 18:09 Pulse Oximetry 95 06/15/21 18:09 Temperature 36.8 C 06/15/21 18:09 Temperature Source Tympanic 06/15/21 18:09 Pulse 88 06/15/21 18:09 Respiratory Rate 18 06/15/21 18:09 Respiratory Effort Non-Labored 06/15/21 17:00 Blood Pressure 126/58 L 06/15/21 18:09 Blood Pressure Position Sitting 06/15/21 18:09 Pulse Oximetry 95 06/15/21 18:09 Oxygen Delivery Method Room Air 06/15/21 18:09 Oxygen Flow Rate 0 06/15/21 18:09 Lab/Test Results Lab/Test Results: Laboratory Tests Range/Units 06/15/21 06/15/21 06/15/21 17:40 17:40 17:40 WBC (4.4-10.8) 10^3/uL 7.07 RBC (4.36-5.78) 10^6/uL 4.23 L Hgb (13.5-17.5) g/dL 14.0 Hct (40.0-50.0) % 41.5 MCV (80-95) fL 98.1 H MCH (27.0-33.0) pg 33.1 H MCHC (32.0-36.0) % 33.7 RDW (11.8-14.1) % 12.6 Plt Count (130-400) 10^3/uL 223 MPV (8.0-11.0) fL 10.7 Immature Gran % 0.4 Neutrophils % 63.2 Lymphocytes % 28.0 Monocytes % 7.5 Eosinophils % 0.6 Basophils % 0.3 Nucleated RBC % % 0 Absolute Neutrophils (1.2-6.7) 10^3/uL 4.47 Absolute Lymphocytes (1.2-3.4) 10^3/uL 1.98 Absolute Monocytes (0.1-0.8) 10^3/uL 0.53 Absolute Eosinophils (0.0-0.7) 10^3/uL 0.04 Absolute Basophils (0.0-0.2) 10^3/uL 0.02 Sodium (136-145) mmol/L 143 Potassium (3.5-5.1) mmol/L 3.0 L Chloride (98-107) mmol/L 104 Carbon Dioxide (21.0-32.0) mmol/L 22.0 Anion Gap (3-11) mmol/L 17.0 H BUN (7-18) mg/dL 12 Creatinine (0.70-1.30) mg/dL 0.9 Estimated GFR/1.73 m2 (mL/min/1.73m2) >= 60.00 Glucose (74-106) mg/dL 97 Calcium (8.5-10.1) mg/dL 8.8 Total Bilirubin (0.2-1.0) mg/dL 0.4 AST (15-37) U/L 42 H ALT (16-63) U/L 30 Alkaline Phosphatase (46-116) U/L 91 Total Protein (6.4-8.2) g/dL 7.7 Albumin (3.4-5.0) g/dL 4.6 TSH (0.36-3.74) uIU/mL 1.50 Urine Color (Yellow) Urine Clarity (Clear) Urine pH (5-8) Ur Specific [place] (1.005-1.025) Urine Protein (Negative) mg/dL Urine Ketones (Negative) mg/dL Urine Blood (Negative) Urine Nitrite (Negative) Urine Bilirubin (Negative) Urine Urobilinogen (Up TO 0.2) EU/dL Ur Leukocyte Esterase (Negative) Urine RBC (0-2) HPF Urine WBC (0-5) HPF Ur Epithelial Cells (Negative) HPF Urine Crystals (Negative) HPF Urine Bacteria (Negative) HPF Urine Casts (Negative) LPF Urine Mucus (Negative) Urine Other (Negative) Ur Culture Indicated? Urine Glucose (Negative) mg/dL Salicylates (<2.8) mg/dL 3.9 Urine Opiates Screen (Negative) Urine Methadone Screen (Negative) Acetaminophen (10-30) ug/mL < 2 Ur Barbiturates Screen (Negative) Ur Tricyclics Screen (Negative) Ur Amphetamines Screen (Negative) U Benzodiazepines Scrn (Negative) Urine Cocaine Screen (Negative) Ur THC Screen (Negative) Ethyl Alcohol (<10) mg/dL 254.8 H COVID-19 Source SARS-CoV-2 (PCR) (Negative) Range/Units 06/15/21 06/15/21 06/15/21 17:45 17:50 17:50 WBC (4.4-10.8) 10^3/uL RBC (4.36-5.78) 10^6/uL Hgb (13.5-17.5) g/dL Hct (40.0-50.0) % MCV (80-95) fL MCH (27.0-33.0) pg MCHC (32.0-36.0) % RDW (11.8-14.1) % Plt Count (130-400) 10^3/uL MPV (8.0-11.0) fL Immature Gran % Neutrophils % Lymphocytes % Monocytes % Eosinophils % Basophils % Nucleated RBC % % Absolute Neutrophils (1.2-6.7) 10^3/uL Absolute Lymphocytes (1.2-3.4) 10^3/uL Absolute Monocytes (0.1-0.8) 10^3/uL Absolute Eosinophils (0.0-0.7) 10^3/uL Absolute Basophils (0.0-0.2) 10^3/uL Sodium (136-145) mmol/L Potassium (3.5-5.1) mmol/L Chloride (98-107) mmol/L Carbon Dioxide (21.0-32.0) mmol/L Anion Gap (3-11) mmol/L BUN (7-18) mg/dL Creatinine (0.70-1.30) mg/dL Estimated GFR/1.73 m2 (mL/min/1.73m2) Glucose (74-106) mg/dL Calcium (8.5-10.1) mg/dL Total Bilirubin (0.2-1.0) mg/dL AST (15-37) U/L ALT (16-63) U/L Alkaline Phosphatase (46-116) U/L Total Protein (6.4-8.2) g/dL Albumin (3.4-5.0) g/dL TSH (0.36-3.74) uIU/mL Urine Color (Yellow) Yellow Urine Clarity (Clear) Clear Urine pH (5-8) 7.0 Ur Specific [place] (1.005-1.025) 1.015 Urine Protein (Negative) mg/dL Trace H Urine Ketones (Negative) mg/dL Negative Urine Blood (Negative) Negative Urine Nitrite (Negative) Negative Urine Bilirubin (Negative) Negative Urine Urobilinogen (Up TO 0.2) EU/dL 0.2 Ur Leukocyte Esterase (Negative) Negative Urine RBC (0-2) HPF 0-2 Urine WBC (0-5) HPF 0-2 Ur Epithelial Cells (Negative) HPF Rare Urine Crystals (Negative) HPF Negative Urine Bacteria (Negative) HPF Negative Urine Casts (Negative) LPF Negative Urine Mucus (Negative) Trace Urine Other (Negative) Few Renal Ur Culture Indicated? No Urine Glucose (Negative) mg/dL Negative Salicylates (<2.8) mg/dL Urine Opiates Screen (Negative) Negative Urine Methadone Screen (Negative) Negative Acetaminophen (10-30) ug/mL Ur Barbiturates Screen (Negative) Negative Ur Tricyclics Screen (Negative) Negative Ur Amphetamines Screen (Negative) Negative U Benzodiazepines Scrn (Negative) Positive A Urine Cocaine Screen (Negative) Negative Ur THC Screen (Negative) Positive A Ethyl Alcohol (<10) mg/dL COVID-19 Source Nasal/Nares SARS-CoV-2 (PCR) (Negative) Negative PAWSS Have you Been Recently Intoxicated or Drunk Within the Last 30 days?: Unable to Obtain Have you Ever Experienced Previous Episodes of Alcohol Withdrawal?: Unable to Obtain Have you ever Experienced Withdrawal Seizures?: Unable to Obtain Have you ever Experienced Delirium Tremens(DT)s?: Unable to Obtain Have you ever undergone Alcohol Rehabilitation Treatment (i.e, inpt ot outpatient treatment programs)?: Unable to Obtain Have you ever Experienced Blackouts?: Unable to Obtain Have you ever Combined Alcohol with other Downers within the last 90 days?: Unable to Obtain Have you ever Combined Alcohol with any other Substance of Abuse during the last 90 days?: Unable to Obtain Evidence of Increased Autonomic Activity (i.e. HR>120, tremor, sweating, agitation, nausea)?: Unable to Obtain
[2021-06-15 19:59] LABS: HIV 1/2 Ab Rapid Negative (Negative)
[2021-06-15 20:45] VITALS: BP 114/65; PULSE 96; RESP 18; O2SAT 95
[2021-06-19 10:23] LABS: Hepatitis B Surface Ag Negative (Negative)
[2021-06-19 10:54] LABS: Hepatitis C Ab w Rflx HCV PCR Negative (Negative)
[2021-06-19 11:06] LABS: HIV-1/2 Ag & Ab Screen Negative (Negative)
== END 2021-06-15 21:59 | disposition home or self-care (01) ==
PROVIDERS: Emergency Provider Physician Assistant; PCP Nurse Practitioner
DX: F10.129 Alcohol abuse with intoxication, unspecified (principal); E86.0 Dehydration; R45.1 Restlessness and agitation; R41.82 Altered mental status, unspecified; S09.8XXA Other specified injuries of head, initial encounter; W22.01XA Walked into wall, initial encounter; Y90.8 Blood alcohol level of 240 mg/100 ml or more
CPT/HCPCS: 36415; 80053; 80307; 86706; 86803; 87340; 87389; 87635; 93005; 96372; 99285; 70450; 80320; 80329; 81003; 81015; 84443; 85025; 93010; J1630; J2250

== ENCOUNTER 2021-08-15 12:44 | Outpatient (CLI) | payer MEDICAID, SELFPAY ==
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
== END 2021-08-15 13:04 ==
PROVIDERS: PCP Nurse Practitioner; Visit Provider Nurse Practitioner Family
DX: R07.81 Pleurodynia (principal); M85.88 Other specified disorders of bone density and structure, other site
CPT/HCPCS: 71046; 71100

== ENCOUNTER 2021-10-03 23:09 | Emergency (ER) | payer MEDICAID, SELFPAY ==
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
--- NOTE | 2021-10-03 23:15 | DI.RAD_ITS ---
Exam(s) XR KNEE LT 3V AP,LAT,TACHO EXAM: XR KNEE LT 3V AP,LAT,TACHO CLINICAL HISTORY: fall 15 feet onto knees. TECHNIQUE: 2D digital imaging was performed. COMPARISON: CR,XR XR KNEE RT 3V AP,LAT,TACHO from 10/04/2021 FINDINGS: 3 views There is no evidence of fracture or obvious joint effusion. Benign bone island is noted in the tibia l plateau. No joint space narrowing. No osteochondral defects. IMPRESSION: No significant findings. DATA REPOSITORY: RADIATION DOSE DELIVERED:
[2021-10-03 23:16] VITALS: PULSE 88
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
[2021-10-03 23:20] VITALS: PULSE 88; RESP 16; O2SAT 99
[2021-10-03 23:26] VITALS: BP 122/70; PULSE 73; PULSE 82; PULSE 84; RESP 16; RESP 18; TEMP 37.5; O2SAT 98; O2SAT 99
[2021-10-03 23:30] VITALS: RESP 16
[2021-10-03 23:34] LABS: BE (Venous) 2 mmol/L (-2-3); HCO3 (Venous) 27 mmol/L (23-28); O2 Sat (Venous) 95 %; TCO2 (Venous) 24 mmol/L (24-29); pCO2 (Venous) 48 mmHg (41-51); pH (Venous) 7.36 (7.31-7.41); pO2 (Venous) 82 mmHg
[2021-10-03 23:35] LABS: Abs Immature Grans 0.04 10^3/uL (0.0-0.06); Absolute Basophil Count 0.07 10^3/uL (0.0-0.2); Absolute Eosinophil Count 0.15 10^3/uL (0.0-0.7); Absolute Monocyte Count 0.82 10^3/uL (0.1-0.8); Basophils % 0.6; Eosinophils % 1.3; HCT 45.7 % (40.0-50.0); HGB 15.7 g/dL (13.5-17.5); Immature Grans % 0.4; MCH 33.5 pg (27.0-33.0); MCHC 34.4 % (32.0-36.0); MCV 97.6 fL (80-95); MPV 10.3 fL (8.0-11.0); Monocytes % 7.3; Neutrophils % 62.4; Nucleated RBC 0 %; Platelet Count 244 10^3/uL (130-400); RBC 4.68 10^6/uL (4.36-5.78); RDW 12.3 % (11.8-14.1); RDW-SD 44.3 fL; WBC 11.23 10^3/uL (4.4-10.8)
[2021-10-03 23:36] LABS: Absolute Lymphocyte Count 3.14 10^3/uL (1.2-3.4); Absolute Neutrophil Count 7.01 10^3/uL (1.2-6.7)
[2021-10-03 23:48] LABS: Ammonia 21 umol/L (11-32)
[2021-10-03 23:51] LABS: ALT 23 U/L (16-63); AST 31 U/L (15-37); Albumin 4.6 g/dL (3.4-5.0); Alkaline Phosphatase 103 U/L (46-116); Anion Gap 9.6 mmol/L (3-11); BUN 8 mg/dL (7-18); Bilirubin, Total 0.3 mg/dL (0.2-1.0); CO2 26.4 mmol/L (21.0-32.0); CREATININE 0.8 mg/dL (0.70-1.30); Calcium 9.4 mg/dL (8.5-10.1); Chloride 107 mmol/L (98-107); ETHANOL BLOOD 252.6 mg/dL (<10); Glucose 93 mg/dL (74-106); Sodium 143 mmol/L (136-145); Total Protein 8.1 g/dL (6.4-8.2)
[2021-10-03 23:54] VITALS: BP 118/66; PULSE 80; PULSE 86; RESP 14; O2SAT 93
[2021-10-03 23:55] VITALS: PULSE 86; RESP 14; O2SAT 93
[2021-10-03 23:55] LABS: Acetaminophen < 2 ug/mL (10-30); Salicylate 4.4 mg/dL (<2.8)
[2021-10-04] VITALS (43 sets, daily range): BP systolic 106–131; BP diastolic 63–87; PULSE 66–105; RESP 13–20; O2SAT 97–100
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
[2021-10-04] MEDS: Omnipaque 350 MG/ML 100 ML BTL IJ (00:08)
[2021-10-04 00:10] LABS: Bilirubin Negative (Negative); Blood Negative (Negative); Clarity Clear (Clear); Glucose Negative (Negative); Ketones Negative (Negative); Leukocyte Esterase Negative (Negative); Nitrite Negative (Negative); Specific Gravity 1.015 (1.005-1.025); Urobilinogen 0.2 EU/dL (Up TO 0.2)
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
[2021-10-04 00:22] LABS: *AMPHETAMINES SCREEN URINE Negative (Negative); *BARBITURATES SCREEN URINE Negative (Negative); *BENZODIAZEPINES SCREEN URINE Negative (Negative); Cannabinoids THC Positive (Negative); Cocaine Screen,Urine Negative (Negative); METHADONE URINE SCREEN Negative (Negative); OPIATES URINE SCREEN Negative (Negative)
[2021-10-04 00:23] LABS: Tricyclic Antidepressants Negative (Negative)
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
[2021-10-04] MEDS: Normal Saline 1,000 ML 1000 ML IV (01:00)
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
[2021-10-04] MEDS: LORazepam 1 MG TAB PO (08:00)
[2021-10-04] MEDS: Acetaminophen 325 MG TAB 650 MG PO (08:26)
--- NOTE | 2021-10-04 09:14 | NUR.NOTE ---
Nursing Note: [id number] [facility] called, aware of patient leaving. Have description of patient. yadira Spring
--- NOTE | 2021-10-04 12:12 | NUR.NOTE ---
Patient spoke with this RN stating he did not wish for there to be a warrant out for his arrest. Advised patient that he should come back for treatment as he has not been having a very positive outcome to his actions as of late. patient stated that he would be at the hospital voluntarily at 4 pm after he has had a chance to say good-bye to some friends. patient stated he was being safe and not drinking any alcohol or using any substances at this time. Ni Banks from notified of conversation.
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
--- NOTE | 2021-10-04 13:55 | NUR.NOTE ---
Nursing Note: [id number] patient called stating he left because he wanted to say goodbye to his girlfriend and child. He again stated that he would return at 4pm. He asked about going out every couple of hours for a smoke and keeping his cell phone. I told him that this was a discussion that he could have with staff when he returned. He stated he wanted to apologize for running off but he needed to say goodbye. He asked if he was still going to have the same doctor and I told him yes. He stated again before hanging up that he would return at 4pm. Shiela pSring
== END 2021-10-04 09:05 | disposition other institution (70) ==
PROVIDERS: Student in an Organized Health Care Education/Training Program; Emergency Provider Emergency Medicine; PCP Nurse Practitioner
DX: S01.01XA Laceration without foreign body of scalp, initial encounter (principal); W13.1XXA Fall from, out of or through bridge, initial encounter; R41.82 Altered mental status, unspecified; R45.1 Restlessness and agitation; F10.129 Alcohol abuse with intoxication, unspecified; Y90.8 Blood alcohol level of 240 mg/100 ml or more; Z53.29 Procedure and treatment not carried out because of patient's decision for other reasons
CPT/HCPCS: 12001; 73562; 74177; 80053; 80307; 82805; 90471; 96360; 99285; 70450; 70486; 71260; 72125; 73610; 80320; 80329; 81003; 82140; 85025; 99284; J3490

== ENCOUNTER 2021-10-04 15:56 | Emergency (ER) | payer MEDICAID, SELFPAY ==
[2021-10-04 16:00] VITALS: BP 156/125; PULSE 146; RESP 20; TEMP 37.7; O2SAT 99
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
--- NOTE | 2021-10-04 19:25 | NUR.NOTE ---
Nursing Note: Additional patient belongings were cataloged around this time with Beth Zaman (CPSO) and Manish Oneill RN. Patient did not sign belongings list due to safety concern. Belongings placed with other personal belongings held by staff.
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
== END 2021-10-04 20:56 | disposition home or self-care (01) ==
PROVIDERS: Emergency Provider Emergency Medicine; PCP Nurse Practitioner
DX: F10.129 Alcohol abuse with intoxication, unspecified (principal)
CPT/HCPCS: 99283; 99282

== ENCOUNTER 2021-10-07 14:23 | Emergency (ER) | payer MEDICAID, SELFPAY ==
[2021-10-07 14:26] VITALS: BP 142/86; PULSE 113; RESP 18; TEMP 37.2; O2SAT 100
--- NOTE | 2021-10-07 14:30 | DI.RAD_ITS ---
Exam(s) XR FINGER LT INDEX EXAM: XR FINGER LT INDEX CLINICAL HISTORY: finger vs drill bit. TECHNIQUE: 2D digital imaging was performed. COMPARISON: No exams were available for comparison FINDINGS: Three views, taken through bandage material. No obvious fracture or dislocation. No radiopaque foreign body. There appears to be skin and subcut aneous defect dorsally over the region of the neck of the middle phalanx. Probably area of laceratio n. There is no radiopaque foreign body. No radiographic evidence of osteomyelitis. IMPRESSION: DATA REPOSITORY: RADIATION DOSE DELIVERED:
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
[2021-10-07] MEDS: Lidocaine/Epinephri/Tetracaine Topical Gel 3 ML (15:09)
--- NOTE | 2021-10-07 15:23 | DI.VRAD_ITS ---
PROCEDURE INFORMATION: Exam: XR Left Finger(s) Exam date and time: 10/07/2021 2:49 PM Age: 21 years old Clinical indication: Injury or trauma; Other: Drill bit vs finger; Laceration; Left; Index finger TECHNIQUE: Imaging protocol: XR Left fingers. Views: Minimum 2 views. COMPARISON: No relevant prior studies available. FINDINGS: Bones/joints: Osseous anatomic alignment is well preserved. No acutely displaced fracture or dislocation. Joint spaces are well preserved. Soft tissues: Soft tissue swelling and possible lacerations to the index finger. IMPRESSION: 1. Swelling and possible lacerations to the index finger. 2. No acute skeletal pathology. Dictated and Authenticated by: Mendez Braga MD. Ordering:THAIS Hernandez MD
== END 2021-10-07 16:03 | disposition home or self-care (01) ==
PROVIDERS: Emergency Provider Physician Assistant; PCP Nurse Practitioner
DX: S61.211A Laceration without foreign body of left index finger without damage to nail, initial encounter (principal); W29.8XXA Contact with other powered hand tools and household machinery, initial encounter
CPT/HCPCS: 29130; 99283; 73140

== ENCOUNTER 2021-10-10 09:56 | Emergency (ER) | payer MEDICAID, SELFPAY ==
[2021-10-10 10:09] VITALS: BP 117/65; PULSE 75; RESP 16; TEMP 36.1; O2SAT 98
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
--- NOTE | 2021-10-10 12:18 | NUR.NOTE ---
Malachi Adamson caregiver called asking what meds and how many were dispensed to patient on discharge. I told him 4 oxycodone. Shiela Spring Nursing Note:
== END 2021-10-10 10:38 | disposition home or self-care (01) ==
PROVIDERS: Emergency Provider Physician Assistant; PCP Nurse Practitioner
DX: S01.01XD Laceration without foreign body of scalp, subsequent encounter (principal); X58.XXXD Exposure to other specified factors, subsequent encounter; L03.116 Cellulitis of left lower limb; Z48.02 Encounter for removal of sutures; S80.12XA Contusion of left lower leg, initial encounter; X58.XXXA Exposure to other specified factors, initial encounter
CPT/HCPCS: 99283

== ENCOUNTER 2021-11-23 17:06 | Emergency (ER) | payer MEDICAID, SELFPAY ==
[2021-11-23] MEDS: Haloperidol 5 MG/ML VIAL (17:20)
[2021-11-23] MEDS: LORazepam 2 MG/ML VIAL (17:20)
[2021-11-23 17:45] VITALS: BP 142/86; PULSE 90; RESP 18; O2SAT 100
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
[2021-11-23 19:32] VITALS: BP 152/82; PULSE 95; RESP 18; TEMP 36.9; O2SAT 99
[2021-11-23 20:34] LABS: *AMPHETAMINES SCREEN URINE Negative (Negative); *BARBITURATES SCREEN URINE Negative (Negative); *BENZODIAZEPINES SCREEN URINE Negative (Negative); Cannabinoids THC Positive (Negative); Cocaine Screen,Urine Negative (Negative); METHADONE URINE SCREEN Negative (Negative); OPIATES URINE SCREEN Negative (Negative); Tricyclic Antidepressants Negative (Negative)
[2021-11-23 20:39] VITALS: BP 138/82; PULSE 80; RESP 18; TEMP 37; O2SAT 99
== END 2021-11-23 20:40 | disposition home or self-care (01) ==
PROVIDERS: Emergency Provider Emergency Medicine; PCP Nurse Practitioner Family
DX: S01.01XA Laceration without foreign body of scalp, initial encounter (principal); W22.03XA Walked into furniture, initial encounter; R45.1 Restlessness and agitation; F12.10 Cannabis abuse, uncomplicated; F17.210 Nicotine dependence, cigarettes, uncomplicated
CPT/HCPCS: 12001; 80048; 80307; 96372; 99285; 80320; 80329; 84443; 85025; 99283; J1630; J2060

== ENCOUNTER 2022-06-06 18:40 | Outpatient (REF) | payer MEDICAID, SELFPAY ==
[2022-06-06 15:37] LABS: Abs Immature Grans 0.02 10^3/uL (0.0-0.06); Absolute Basophil Count 0.05 10^3/uL (0.0-0.2); Absolute Eosinophil Count 0.07 10^3/uL (0.0-0.7); Absolute Lymphocyte Count 3.05 10^3/uL (1.2-3.4); Absolute Monocyte Count 0.53 10^3/uL (0.1-0.8); Absolute Neutrophil Count 3.72 10^3/uL (1.2-6.7); Basophils % 0.7; Eosinophils % 0.9; HCT 44.1 % (40.0-50.0); HGB 14.8 g/dL (13.5-17.5); Immature Grans % 0.3; MCH 32.5 pg (27.0-33.0); MCHC 33.6 % (32.0-36.0); MCV 97 fL (80-95); MPV 11.4 fL (8.0-11.0); Monocytes % 7.1; Platelet Count 238 10^3/uL (130-400); RBC 4.55 10^6/uL (4.36-5.78); RDW 12.2 % (11.8-14.1); RDW-SD 44.2 fL; WBC 7.44 10^3/uL (4.4-10.8)
[2022-06-06 15:44] LABS: ESR < 1 mm/hr (0-15)
[2022-06-06 15:54] LABS: ALT 20 U/L (16-63); AST 26 U/L (15-37); Albumin 4.3 g/dL (3.4-5.0); Alkaline Phosphatase 89 U/L (46-116); Anion Gap 6.9 mmol/L (3-11); BUN 13 mg/dL (7-18); Bilirubin, Total 0.5 mg/dL (0.2-1.0); CO2 30.1 mmol/L (21.0-32.0); CREATININE 0.9 mg/dL (0.70-1.30); Calcium 9.3 mg/dL (8.5-10.1); Chloride 106 mmol/L (98-107); Estimated GFR 123.07 (mL/min/1.73m2); Glucose 72 mg/dL (74-106); Potassium 4.5 mmol/L (3.5-5.1); Sodium 143 mmol/L (136-145); Total Protein 7.6 g/dL (6.4-8.2)
[2022-06-06 15:55] LABS: C-Reactive Protein < 0.05 mg/dL (0.0-0.3)
== END 2022-06-06 18:41 | disposition home or self-care (01) ==
LOC: NCHCN 18:40
PROVIDERS: PCP Nurse Practitioner Family; Visit Provider Nurse Practitioner Family
DX: F17.200 Nicotine dependence, unspecified, uncomplicated; F10.20 Alcohol dependence, uncomplicated; F12.10 Cannabis abuse, uncomplicated; G89.29 Other chronic pain; Z00.00 Encounter for general adult medical examination without abnormal findings; F41.8 Other specified anxiety disorders
CPT/HCPCS: 80053; 85652; 85025; 86140

== ENCOUNTER 2022-06-20 10:43 | Emergency (ER) | payer MEDICAID, SELFPAY ==
--- NOTE | 2022-06-20 10:45 | DI.RAD_ITS ---
Exam(s) XR ANKLE RT COMPLETE EXAM: XR ANKLE RT COMPLETE CLINICAL HISTORY: twist injury. TECHNIQUE: 2D digital imaging was performed. COMPARISON: CR,XR XR ANKLE LT COMPLETE from 10/04/2021 FINDINGS: 3 views There is soft tissue swelling laterally but no evidence of fracture or widening of the ankle mortise. Talar dome unremarkable. Bone density normal. No degenerative changes. No evidence of tarsal coa lition. IMPRESSION: Soft tissue swelling but no fractures evident. DATA REPOSITORY: RADIATION DOSE DELIVERED:
[2022-06-20 10:47] VITALS: BP 138/81; PULSE 89; RESP 18; TEMP 36.8; O2SAT 99
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
== END 2022-06-20 11:57 | disposition home or self-care (01) ==
PROVIDERS: Emergency Provider Physician Assistant; PCP Nurse Practitioner Family
DX: S93.491A Sprain of other ligament of right ankle, initial encounter (principal); X50.1XXA Overexertion from prolonged static or awkward postures, initial encounter
CPT/HCPCS: 29130; 99283; 73610

== ENCOUNTER 2022-07-11 10:01 | Emergency (ER) | payer MEDICAID, SELFPAY ==
[2022-07-11 10:07] VITALS: BP 151/83; PULSE 76; RESP 16; TEMP 36.9; O2SAT 100
--- NOTE | 2022-07-11 10:15 | DI.RAD_ITS ---
Exam(s) XR CHEST 2V PA LATERAL EXAM: XR CHEST 2V PA LATERAL CLINICAL HISTORY: fall with pain. TECHNIQUE: 2D digital imaging was performed. COMPARISON: CR XR RIBS LT W PA LAT CHEST from 08/15/2021 FINDINGS: 2 views: Heart size is normal. The mediastinum is not widened. Lungs are clear. No infiltrates nor pleural effusions. IMPRESSION: No acute pulmonary findings. DATA REPOSITORY: RADIATION DOSE DELIVERED:
--- NOTE | 2022-07-11 10:15 | DI.RAD_ITS ---
Exam(s) XR SHOULDER LT COMPLETE 2+V EXAM: XR SHOULDER LT COMPLETE 2+V CLINICAL HISTORY: fall with pain. TECHNIQUE: 2D digital imaging was performed. COMPARISON: No exams were available for comparison FINDINGS: 3 views No evidence of fracture or dislocation of the humeral head and glenoid fossa. However, there is a nondisplaced fracture in the lateral aspect clavicle 1 cm proximal to the AC join t. No dislocation of the AC joint. The acromion appears unremarkable. No scapular fracture evident . No adjacent rib fractures. IMPRESSION: Lateral clavicle fracture. DATA REPOSITORY: RADIATION DOSE DELIVERED:
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
== END 2022-07-11 11:49 | disposition home or self-care (01) ==
PROVIDERS: Emergency Provider Physician Assistant; PCP Nurse Practitioner Family
DX: S42.032A Displaced fracture of lateral end of left clavicle, initial encounter for closed fracture (principal); W10.9XXA Fall (on) (from) unspecified stairs and steps, initial encounter
CPT/HCPCS: 99284; 71046; 73030

== ENCOUNTER 2022-12-27 10:00 | Emergency (ER) | payer MEDICAID, SELFPAY ==
[2022-12-27 10:08] VITALS: BP 132/91; PULSE 115; RESP 15; TEMP 36.2; O2SAT 98
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
[2022-12-27 10:45] LABS: Abs Immature Grans 0.06 10^3/uL (0.0-0.06); Absolute Eosinophil Count 0.06 10^3/uL (0.0-0.7); Absolute Monocyte Count 0.88 10^3/uL (0.1-0.8); Absolute Neutrophil Count 7.85 10^3/uL (1.2-6.7); Basophils % 0.3; Eosinophils % 0.5; HCT 43.6 % (40.0-50.0); HGB 15.2 g/dL (13.5-17.5); Immature Grans % 0.5; Lymphocytes % 24.6; MCH 32.9 pg (27.0-33.0); MCHC 34.9 % (32.0-36.0); MCV 94 fL (80-95); MPV 10.3 fL (8.0-11.0); Monocytes % 7.5; Neutrophils % 66.6; Platelet Count 273 10^3/uL (130-400); RBC 4.62 10^6/uL (4.36-5.78); RDW 12.6 % (11.8-14.1); RDW-SD 43.7 fL; WBC 11.78 10^3/uL (4.4-10.8)
[2022-12-27 10:48] LABS: Absolute Basophil Count 0.04 10^3/uL (0.0-0.2)
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
[2022-12-27] MEDS: LORazepam 2 MG/ML VIAL 0.5 MG IVP ×2 (10:57→11:13)
[2022-12-27 11:03] LABS: ALT 25 U/L (16-63); AST 39 U/L (15-37); Albumin 4.7 g/dL (3.4-5.0); Alkaline Phosphatase 94 U/L (46-116); Anion Gap 9.9 mmol/L (3-11); BUN 11 mg/dL (7-18); Bilirubin, Total 0.5 mg/dL (0.2-1.0); CO2 26.1 mmol/L (21.0-32.0); CREATININE 0.8 mg/dL (0.70-1.30); Calcium 9.3 mg/dL (8.5-10.1); Chloride 106 mmol/L (98-107); ETHANOL BLOOD 67.6 mg/dL (<10); Estimated GFR 127.53 (mL/min/1.73m2); Glucose 72 mg/dL (74-106); Sodium 142 mmol/L (136-145); Total Protein 8.4 g/dL (6.4-8.2); Troponin I < 50 ng/L (<or=60)
[2022-12-27] MEDS: Omnipaque 350 MG/ML 500 ML BTL-Imaging package 100 ML IJ (12:22)
[2022-12-27] MEDS: Normal Saline - Diluent 50 ML VIAL IJ (12:23)
[2022-12-27 13:06] VITALS: BP 122/78; PULSE 88; RESP 16; O2SAT 98
== END 2022-12-27 13:16 | disposition home or self-care (01) ==
PROVIDERS: Emergency Provider Nurse Practitioner Family; PCP Nurse Practitioner Family
DX: F10.929 Alcohol use, unspecified with intoxication, unspecified (principal); Y09 Assault by unspecified means; S00.81XA Abrasion of other part of head, initial encounter
CPT/HCPCS: 36415; 74177; 80053; 96374; 96376; 99285; 70450; 70486; 71260; 72125; 80320; 83735; 84484; 85025; 99284; J2060

== ENCOUNTER → 2023-05-14 00:59 | Outpatient (CLI) | payer MEDICAID, SELFPAY ==
--- NOTE | 2023-05-14 | DI.MRI_ITS ---
Exam(s) MR BRAIN WO/W EXAM: MR BRAIN WO/W CLINICAL HISTORY: VISION CHANGES H53.9 MIGRAINE G43.909. TECHNIQUE: Multiplanar multisequence MRI of the brain was performed. CONTRAST MATERIAL: IV Contrast: 14 ML of Dotarem contrast administered. COMPARISON: CT CT HEAD WO from 06/15/2021 FINDINGS: VENTRICLES AND EXTRA AXIAL SPACES: Normal in size and morphology for the patient's age. HEMORRHAGE: None. CEREBRAL PARENCHYMA: No focus of restricted diffusion to suggest acute infarct. No space-occupying le mindy identified. No abnormal white matter foci. MIDLINE SHIFT: None. BRAINSTEM/CEREBELLUM: Normal. CALVARIUM: Normal. ENHANCEMENT: No suspicious enhancement identified. VISUALIZED PARANASAL SINUSES/MASTOIDS: Mucous retention in the left maxillary sinus. OTHER FINDINGS: Vascular flow voids are intact. Orbits are unremarkable. Pituitary is normal in siz e. IMPRESSION: Unremarkable MRI of the brain. DATA REPOSITORY:
[2023-05-14] MEDS: Gadoterate meglumine 20 ML SYRINGE 13.6 ML IVP (14:03)
[2023-05-14] MEDS: Normal Saline Flush 10 ML SYR IJ (14:06)
== END ==
PROVIDERS: PCP Nurse Practitioner Family; Visit Provider Nurse Practitioner Family
DX: H53.9 Unspecified visual disturbance (principal); G43.909 Migraine, unspecified, not intractable, without status migrainosus
CPT/HCPCS: 70553

== ENCOUNTER 2023-12-25 22:59 | Emergency (ER) | payer MEDICAID, SELFPAY ==
[2023-12-25] VITALS (15 sets, daily range): BP systolic 138–167; BP diastolic 69–82; PULSE 80–95; RESP 13–26; TEMP 36.4; O2SAT 94
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
[2023-12-25 23:16] LABS: BE (Venous) -4 mmol/L (-2-3); HCO3 (Venous) 22 mmol/L (23-28); O2 Sat (Venous) 97 %; TCO2 (Venous) 20 mmol/L (24-29); pCO2 (Venous) 47 mmHg (41-51); pH (Venous) 7.28 (7.31-7.41); pO2 (Venous) 99 mmHg
[2023-12-25 23:17] LABS: HCT 41.8 % (40.0-50.0); HGB 14.3 g/dL (13.5-17.5); MCH 33.1 pg (27.0-33.0); MCHC 34.2 % (32.0-36.0); MCV 97 fL (80-95); MPV 10.3 fL (8.0-11.0); RBC 4.32 10^6/uL (4.36-5.78)
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
[2023-12-25 23:30] LABS: Lipase 29 U/L (16-77)
[2023-12-25] MEDS: Ketamine 500 MG/10 ML VIAL 198.672 MG IM (23:31)
[2023-12-25] MEDS: Lactated Ringers 1,000 ML 1000 ML IV (23:31)
[2023-12-25 23:34] LABS: ALT 26 U/L (16-63); AST 21 U/L (15-37); Albumin 4.5 g/dL (3.4-5.0); Alkaline Phosphatase 91 U/L (46-116); BUN 12 mg/dL (7-18); Bilirubin, Total 0.3 mg/dL (0.2-1.0); Calcium 8.4 mg/dL (8.5-10.1); Chloride 104 mmol/L (98-107); Estimated GFR 107.78 (mL/min/1.73m2); Glucose 109 mg/dL (74-106); Potassium 3.2 mmol/L (3.5-5.1); Sodium 142 mmol/L (136-145); Total Protein 7.5 g/dL (6.4-8.2)
[2023-12-25 23:35] LABS: ETHANOL BLOOD 318.6 mg/dL (<10)
[2023-12-25 23:39] LABS: Absolute Eosinophil Count 1.02 10^3/uL (0.0-0.7); Absolute Monocyte Count 0.38 10^3/uL (0.1-0.8); Atypical Lymphocytes % 7 %; Diff Comment Manual Differential; RBC Morphology Normal
[2023-12-25 23:40] LABS: Platelet Count 225 10^3/uL (130-400)
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
[2023-12-25] MEDS: Ondansetron 4 MG/2 ML VIAL IVP (23:53)
[2023-12-26] VITALS (17 sets, daily range): BP systolic 133–150; BP diastolic 69–89; PULSE 63–98; RESP 9–18; O2SAT 85
[2023-12-26 01:06] LABS: ETHANOL BLOOD 288.1 mg/dL (<10)
== END 2023-12-26 01:44 ==
PROVIDERS: Emergency Provider Student in an Organized Health Care Education/Training Program; PCP Nurse Practitioner Family
DX: S06.0X0A Concussion without loss of consciousness, initial encounter (principal); F17.210 Nicotine dependence, cigarettes, uncomplicated; F10.120 Alcohol abuse with intoxication, uncomplicated; Y90.8 Blood alcohol level of 240 mg/100 ml or more; W01.0XXA Fall on same level from slipping, tripping and stumbling without subsequent striking against object, initial encounter; Y93.02 Activity, running
CPT/HCPCS: 80053; 82805; 83690; 96374; 99284; 70450; 70486; 72125; 80320; 85025; 99283; J2405

== ENCOUNTER 2025-01-21 10:29 | Emergency (ER) | payer MEDICAID, SELFPAY ==
[2025-01-21 10:40] VITALS: BP 114/72; PULSE 85; RESP 20; TEMP 36.7; O2SAT 98
--- NOTE | 2025-01-21 10:45 | DI.CT_ITS ---
Exam(s) CT CHEST/ABD/PEL W EXAM: CT CHEST/ABD/PEL W CLINICAL HISTORY: fall off ladder, left chest and spleen pain. TECHNIQUE: Imaging Protocol: Axial computed tomography images with coronal and sagittal reformatted images were created and reviewed CONTRAST MATERIAL: Intravenous: Omnipaque 350 Contrast volume:75 RML Oral: None COMPARISON: CT CT THORACIC LUMBAR SPINE REC from 12/27/2022 FINDINGS: CHEST: LUNGS: There is a fracture of the lateral aspect of the left 8th rib. There is also nondisplaced fracture of the posterior left 10th rib. Also fracture of the anterolateral aspect of the left 11th rib it there are mild increased subpleural markings in the left lower lobe. None there is a tiny subjacent pneumothorax over the left lower lobe, approximately 5 percent. No other left lung findings. No significant right lung findings. No right rib fractures. MEDIASTINUM: No evidence of sternal fracture nor mediastinal hematoma. No obvious clavicle fractures. No incidental hilar nor mediastinal adenopathy. CARDIAC: Heart size is normal. There is no pericardial effusion.Thoracic aorta is intact/unremarkable.. OSSEOUS: Multiple left rib fractures as described above, nondisplaced. No vertebral fractures.. ABDOMEN: There is no ascites. LIVER: Intact. No lacerations evident. No incidental lesions. No dilated intrahepatic ducts. GALLBLADDER/BILIARY: No obvious gallbladder pathology. CBD is not dilated. PANCREAS: No evidence of pancreatic mass nor dilatation of the pancreatic duct. SPLEEN: Intact. No lacerations. Normal size. Splenic and portal veins are patent. ADRENALS: There are no significant adrenal masses. KIDNEYS: No renal lacerations nor subcapsular hematomas. No focal findings in the kidneys.. No hydronephrosis. ABDOMINAL AORTA: Unremarkable. Iliac arteries also intact/unremarkable. LYMPH NODES: There is no retroperitoneal nor paraaortic adenopathy. ABDOMINAL WALL: No evidence of significant anterior abdominal wall nor inguinal hernia. GI: No evidence of mesenteric nor bowel wall hematoma. PELVIS: LYMPH NODES: There is no intrapelvic nor inguinal adenopathy. GI: No evidence of appendicitis.No evidence of sigmoid diverticulitis. URINARY BLADDER: Moderately distended. Otherwise unremarkable. REPRODUCTIVE: Prostate size normal. Seminal vesicles unremarkable. OSSEOUS: No vertebral body nor transverse process fractures. No facet malalignment. Sacrum appears intact. x IMPRESSION: 1. There are acute nondisplaced fractures of the left, 10th, and 11th ribs. Small subjacent lung contusion and tiny subjacent 5 percent pneumothorax. No pleural effusion. 2. No evidence of obvious splenic laceration nor other acute [id number] findings, although the urinary bladder is noted to be moderately distended. Findings discussed with ER physician 01/21/2025 at 12:20 p.m. RADIATION DOSE DELIVERED: 196.59mGy.cm Total DLP DATA REPOSITORY: All CT scans at this facility are submitted to the National Radiology Data Registry (NRDR) Dose Index Registry (DIR) with the [employer] (ACR). RADIATION OPTIMIZATION: All CT scans at this facility use at least one of these dose optimization techniques: automated exposure control; mA and/or kV adjustment per patient size (includes targeted exams where dose is matched to clinical indication); or iterative reconstruction.
--- NOTE | 2025-01-21 10:45 | DI.RAD_ITS ---
Exam(s) XR PORTABLE CHEST AP EXAM: XR PORTABLE CHEST AP CLINICAL HISTORY: Shortness of Breath. TECHNIQUE: 2D digital imaging was performed. COMPARISON: CR XR CHEST 2V PA LATERAL from 07/11/2022 FINDINGS: Single AP portable view. Heart size is upper normal. The mediastinum is not widened. Lungs are clear. No infiltrates nor obvious pleural effusions. IMPRESSION: No acute pulmonary findings on this single AP portable view of the chest. DATA REPOSITORY: RADIATION DOSE DELIVERED:
[2025-01-21] MEDS: diazePAM 5 MG TAB PO (11:04)
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
[2025-01-21] MEDS: Lidocaine/Epinephri/Tetracaine Topical Gel 3 ML ×2 (11:13)
[2025-01-21 11:32] LABS: Abs Immature Grans 0.10 10^3/uL (0.0-0.06); HCT 40.1 % (40.0-50.0); HGB 13.7 g/dL (13.5-17.5); Immature Grans % 0.6 %; MCH 31.8 pg (27.0-33.0); MCHC 34.2 % (32.0-36.0); MCV 93 fL (80-95); MPV 10.3 fL (8.0-11.0); Platelet Count 240 10^3/uL (130-400); RBC 4.31 10^6/uL (4.36-5.78); RDW 13.1 % (11.8-14.1); RDW-SD 45.1 fL; WBC 16.23 10^3/uL (4.4-10.8)
[2025-01-21] MEDS: Normal Saline - Diluent 50 ML VIAL IJ (11:40)
[2025-01-21] MEDS: MORPHine 4 MG/ML SYR (11:40)
[2025-01-21] MEDS: Omnipaque 350 MG/ML 100 ML BTL IJ (11:40)
--- NOTE | 2025-01-21 11:45 | DI.CT_ITS ---
Exam(s) CT THORACIC LUMBAR SPINE REC EXAM: CT THORACIC LUMBAR SPINE REC CLINICAL HISTORY: fall of ladder TECHNIQUE: COMPARISON: No exams were available for comparison FINDINGS: THORACIC SPINAL COLUMN: There is slight indentation the superior endplate of T6 and T7 and T9. These are age indeterminate. There are no retropulsed fragments. No facet malalignment. LUMBOSACRAL SPINAL COLUMN: No evidence of fracture or listhesis. No pars defects. No disc space narrowing evident. No incidental osseous lesions. No obvious disc herniations. IMPRESSION: Slight indentation of superior endplates of T6, T7, and the more so at T 9 level. No osseous findings in the lumbosacral spinal column. Discussed by phone with ER physician 01/21/2025 at 12:35 p.m.
[2025-01-21 11:49] LABS: ALT 29 U/L (16-63); AST 39 U/L (15-37); Albumin 4.5 g/dL (3.4-5.0); Alkaline Phosphatase 110 U/L (46-116); Anion Gap 8.6 mmol/L (3-11); BUN 6 mg/dL (7-18); Bilirubin, Total 0.8 mg/dL (0.2-1.0); CO2 29.4 mmol/L (21.0-32.0); Calcium 9.4 mg/dL (8.5-10.1); Chloride 105 mmol/L (98-107); Estimated GFR 137.39 (mL/min/1.73m2); Glucose 107 mg/dL (74-106); Potassium 3.9 mmol/L (3.5-5.1); Sodium 143 mmol/L (136-145); Total Protein 7.8 g/dL (6.4-8.2)
== END 2025-01-21 12:47 | disposition home or self-care (01) ==
PROVIDERS: Emergency Provider Student in an Organized Health Care Education/Training Program; PCP Nurse Practitioner Family
DX: J93.9 Pneumothorax, unspecified; W11.XXXA Fall on and from ladder, initial encounter; R10.32 Left lower quadrant pain; S22.42XA Multiple fractures of ribs, left side, initial encounter for closed fracture
CPT/HCPCS: 99285; 99284; 96374; 36415; 74177; 76604; 76705; 76857; 80053; 86850; 86900; 86901; 71045; 71260; 85025; J2270; J3490

== ENCOUNTER 2025-01-25 12:20 | Outpatient (CLI) | payer MEDICAID, SELFPAY ==
--- NOTE | 2025-01-25 11:15 | DI.RAD_ITS ---
Exam(s) XR CHEST 2V PA LATERAL EXAM: XR CHEST 2V PA LATERAL CLINICAL HISTORY: left pneumothorax follow up, J93.9 TECHNIQUE: 2D digital imaging was performed. Two views. COMPARISON: CT CT CHEST/ABD/PEL W from 01/21/2025 FINDINGS: HEART: Normal size. Aorta: Not dilated. PULMONARY VASCULATURE: Normal. MEDIASTINUM: Unremarkable. LUNGS: Clear. PLEURAL SPACE: No pleural effusion or pneumothorax. BONE:There are nondisplaced fractures of the left 8th and 9th ribs. The more inferior ribs are under penetrated. SOFT TISSUES: Unremarkable. IMPRESSION: Left 8th 9th rib fractures. No pneumothorax is visible. DATA REPOSITORY: RADIATION DOSE DELIVERED:
== END 2025-01-25 12:40 ==
LOC: DI 12:20
PROVIDERS: PCP Nurse Practitioner Family; Visit Provider Surgery
DX: J93.9 Pneumothorax, unspecified (principal)
CPT/HCPCS: 71046

== ENCOUNTER 2025-04-05 09:35 | Emergency (ER) | payer MEDICAID, SELFPAY ==
[2025-04-05 09:53] VITALS: BP 117/68; PULSE 89; RESP 18; TEMP 36.6; O2SAT 95
[2025-04-05 10:10] VITALS: BP 117/68; PULSE 89; RESP 18; TEMP 36.6; O2SAT 95
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
[2025-04-05] MEDS: Fluorescein STRIPS 100/BOX 1 MG OP (11:00)
[2025-04-05] MEDS: Tetracaine 0.5% 4 ML BTL OP (11:00)
[2025-04-05] MEDS: Erythromycin Ophth Oint 3.5 GM TUBE OD (11:37)
[2025-04-05 11:40] VITALS: BP 117/72; PULSE 81; RESP 16; TEMP 36.6; O2SAT 99
== END 2025-04-05 11:53 | disposition home or self-care (01) ==
PROVIDERS: Emergency Provider Physician Assistant; PCP Nurse Practitioner Family
DX: S05.02XA Injury of conjunctiva and corneal abrasion without foreign body, left eye, initial encounter (principal); F17.210 Nicotine dependence, cigarettes, uncomplicated; F17.290 Nicotine dependence, other tobacco product, uncomplicated; W22.8XXA Striking against or struck by other objects, initial encounter; Y93.01 Activity, walking, marching and hiking; Y92.89 Other specified places as the place of occurrence of the external cause
CPT/HCPCS: 99283